=== PATIENT | female | born 1965 | race Two or more races ===

== ENCOUNTER 2023-03-15 17:30 | Inpatient (IN) | payer MEDICAID, OTHER ==
[~2023-03-15] VITALS: Ht 167.6 cm; Wt 72.7 kg
[2023-03-15] MEDS ORDERED: ACETAMINOPHEN 500 MG TAB PO ONE (18:15)
[2023-03-15 18:32] LABS: Basophils # (auto) 0 10 ^3/uL (0-0.2); Basophils % (auto) 0.1 % (0.0-2.0); Eosinophils # (auto) 0.1 10 ^3/uL (0-0.8); Eosinophils % (auto) 1.7 % (0.0-7.0); Hemoglobin 13.1 g/dL (12.2-16.2); Lymphocytes # (auto) 0.5 10 ^3/uL (0.4-5.4); Lymphocytes % (auto) 7.4 % (10.0-50.0); Mean Corpuscular Hemoglobin 30.7 pg (28.0-32.0); Mean Corpuscular Hgb Conc. 32.7 g/dL (32.0-36.0); Mean Corpuscular Volume 93.9 fL (80.0-100.0); Monocytes # (auto) 0.2 10 ^3/uL (0-1.3); Monocytes % (auto) 2.8 % (0.0-12.0); Neutrophils # (auto) 5.5 10 ^3/uL (1.6-8.6); Red Blood Cells 4.26 10^6/uL (4.0-5.20); Red Cell Distribution Width 13.6 % (11.8-14.3); White Blood Cell 6.3 10^3/uL (4.4-10.8)
[2023-03-15 18:49] LABS: INR 0.92 (0.9-1.15); Partial Thromboplastin Time 25.9 sec (24.6-33.4)
[2023-03-15 19:51] LABS: Albumin 3.3 g/dL (3.4-5.0); Calcium 8.4 mg/dL (8.5-10.1); Magnesium 1.9 mg/dL (1.6-2.6); Potassium 3.9 mmol/L (3.5-5.1)
[2023-03-15 19:55] LABS: BUN/Creatinine Ratio 20.3 (10.0-20.0); Bilirubin, Total 0.6 mg/dL (0.2-1.0); Total Protein 6.4 g/dL (6.4-8.2)
[2023-03-15] MEDS ORDERED: PIPERACILLIN-TAZOB 3.375GM 100 ML IV ONE (20:00)
[2023-03-15] MEDS ORDERED: LACTATED RINGER'S 2,200 ML IV ONE (20:00)
[2023-03-15] MEDS ORDERED: VANCOMYCIN 1GM/250ML 250 ML IV ONE (20:00)
[2023-03-16 01:54] LABS: Urine Bacteria FEW /hpf (None Seen); Urine Blood Negative /uL (Negative); Urine Specific Gravity 1.003 (1.001-1.035); Urine WBC <1 /hpf (0 - 5)
[2023-03-16] MEDS ORDERED: VANCOMYCIN PER PHARMACY 0 MG IV SCH (03:45)
[2023-03-16] MEDS ORDERED: DEXTROSE (50%) 50ML SYRG IV PRN (03:45)
[2023-03-16] MEDS ORDERED: ONDANSETRON HCL 4 MG/2 ML VIAL IV PRN (03:45)
[2023-03-16] MEDS ORDERED: DOCUSATE SOD 100 MG CAP PO PRN (03:45)
[2023-03-16] MEDS ORDERED: HYDROcodone-ACET 5/325MG TAB PO PRN (03:45)
[2023-03-16] MEDS: SOD CHL 0.45% 1,000 ML IV SCH ×2 (04:36→17:28)
[2023-03-16] MEDS ORDERED: MORPHINE SULFATE INJ 2 MG/ml SYRG IV PRN (05:30)
[2023-03-16] MEDS ORDERED: NITROGLYCERIN 0.4 MG SL TAB SL PRN (05:30)
[2023-03-16 05:37] LABS: Potassium 3.4 mmol/L (3.5-5.1)
[2023-03-16 05:44] LABS: Albumin 3.1 g/dL (3.4-5.0); Bilirubin, Total 0.7 mg/dL (0.2-1.0); Calcium 8.2 mg/dL (8.5-10.1); Total Protein 6.5 g/dL (6.4-8.2)
[2023-03-16 05:52] LABS: Basophils # (auto) 0 10 ^3/uL (0-0.2); Basophils % (auto) 0.3 % (0.0-2.0); Eosinophils # (auto) 0.1 10 ^3/uL (0-0.8); Eosinophils % (auto) 2.4 % (0.0-7.0); Hematocrit 37.5 % (36.0-46.0); Hemoglobin 12.5 g/dL (12.2-16.2); Lymphocytes # (auto) 1.6 10 ^3/uL (0.4-5.4); Lymphocytes % (auto) 27.2 % (10.0-50.0); Mean Corpuscular Hemoglobin 30.9 pg (28.0-32.0); Mean Corpuscular Hgb Conc. 33.2 g/dL (32.0-36.0); Monocytes # (auto) 0.5 10 ^3/uL (0-1.3); Monocytes % (auto) 9.2 % (0.0-12.0); Neutrophils # (auto) 3.5 10 ^3/uL (1.6-8.6); Neutrophils % (auto) 60.9 % (37.0-80.0); Red Blood Cells 4.03 10^6/uL (4.0-5.20); Red Cell Distribution Width 13.4 % (11.8-14.3); White Blood Cell 5.8 10^3/uL (4.4-10.8)
[2023-03-16] MEDS: ACCU-CHEK COMFORT CURVE STRIP VI SCH ×4 (06:55→22:25)
[2023-03-16] MEDS: InsuLIN REG 1unit/0.01ml Soln (100units/ml) SC SCH ×3 (07:01→17:29)
[2023-03-16] MEDS ORDERED: cefTRIAXone 1GM/50ML D5W 50 ML IV SCH (09:00)
[2023-03-16] MEDS: ACETAMINOPHEN 325 MG TAB PO PRN ×2 (09:01→22:32)
[2023-03-16] MEDS ORDERED: ASPirin 81 mg TAB PO SCH (10:00)
[2023-03-16] MEDS: VANCOMYCIN 1GM/250ML 250 ML IV SCH ×2 (11:11→23:32)
[2023-03-16] MEDS ORDERED: InsuLIN REG 1unit/0.01ml Soln (100units/ml) SC SCH (22:00)
[2023-03-16] MEDS ORDERED: ATORVASTATIN 20 MG TAB PO SCH (22:00)
[2023-03-17 06:37] LABS: Basophils # (auto) 0 10 ^3/uL (0-0.2); Basophils % (auto) 0.5 % (0.0-2.0); Eosinophils # (auto) 0.2 10 ^3/uL (0-0.8); Eosinophils % (auto) 2.2 % (0.0-7.0); Hematocrit 36.4 % (36.0-46.0); Hemoglobin 12.7 g/dL (12.2-16.2); Lymphocytes # (auto) 1.8 10 ^3/uL (0.4-5.4); Lymphocytes % (auto) 25.7 % (10.0-50.0); Mean Corpuscular Hemoglobin 32.1 pg (28.0-32.0); Mean Corpuscular Volume 91.8 fL (80.0-100.0); Monocytes # (auto) 0.7 10 ^3/uL (0-1.3); Monocytes % (auto) 9.6 % (0.0-12.0); Neutrophils # (auto) 4.3 10 ^3/uL (1.6-8.6); Nucleated Red Blood Cells % 0.1 %; Red Blood Cells 3.96 10^6/uL (4.0-5.20); Red Cell Distribution Width 13.7 % (11.8-14.3); White Blood Cell 6.9 10^3/uL (4.4-10.8)
[2023-03-17 06:40] VITALS: BP 142/61
[2023-03-17 06:53] LABS: Albumin 3.2 g/dL (3.4-5.0); Calcium 8.6 mg/dL (8.5-10.1); Potassium 3.2 mmol/L (3.5-5.1)
[2023-03-17 07:01] LABS: BUN/Creatinine Ratio 19.6 (10.0-20.0); Bilirubin, Total 0.7 mg/dL (0.2-1.0); Total Protein 6.9 g/dL (6.4-8.2)
== END 2023-03-17 06:43 | disposition left against medical advice (07) | DRG 422 ==
LOC: ER 17:30 → EDBD 17:30 → ER 03-16 02:21 → TELE 03-16 05:30
PROVIDERS: ADMIT Nurse Practitioner Family; ATTEND Internal Medicine
DX: E86.0 Dehydration (principal); E11.9 Type 2 diabetes mellitus without complications; N39.0 Urinary tract infection, site not specified; Z53.29 Procedure and treatment not carried out because of patient's decision for other reasons; R26.2 Difficulty in walking, not elsewhere classified; Z20.822 Contact with and (suspected) exposure to COVID-19; Z85.41 Personal history of malignant neoplasm of cervix uteri; Z86.73 Personal history of transient ischemic attack (TIA), and cerebral infarction without residual deficits; Z90.710 Acquired absence of both cervix and uterus
CPT/HCPCS: 36415; 70450; 71045; 74176; 80053; 81001; 82962; 83036; 83605; 83735; 83880; 84484; 85025; 85610; 85730; 87040; 87426; 87804; 93005; 96365; 96367; G0378; J0696; J1815; J2543

== ENCOUNTER 2023-07-02 15:48 | Inpatient (IN) | payer MEDICAID ==
[~2023-07-02] VITALS: Ht 160 cm; Wt 89.6 kg
[2023-07-02] MEDS ORDERED: CLOPIDOGREL BISULFATE 75 MG TAB PO ONE (16:45)
[2023-07-02 16:59] LABS: Basophils # (auto) 0 10 ^3/uL (0-0.2); Basophils % (auto) 0.7 % (0.0-2.0); Eosinophils # (auto) 0.1 10 ^3/uL (0-0.8); Eosinophils % (auto) 1.4 % (0.0-7.0); Hematocrit 38.6 % (36.0-46.0); Hemoglobin 12.8 g/dL (12.2-16.2); Lymphocytes # (auto) 2.1 10 ^3/uL (0.4-5.4); Lymphocytes % (auto) 32.3 % (10.0-50.0); Mean Corpuscular Hgb Conc. 33.1 g/dL (32.0-36.0); Mean Corpuscular Volume 93.6 fL (80.0-100.0); Monocytes # (auto) 0.5 10 ^3/uL (0-1.3); Monocytes % (auto) 7.1 % (0.0-12.0); Neutrophils # (auto) 3.9 10 ^3/uL (1.6-8.6); Neutrophils % (auto) 58.5 % (37.0-80.0); Nucleated Red Blood Cells % 0.1 %; Red Blood Cells 4.13 10^6/uL (4.0-5.20); Red Cell Distribution Width 13.6 % (11.8-14.3); White Blood Cell 6.6 10^3/uL (4.4-10.8)
[2023-07-02] MEDS ORDERED: ONDANSETRON HCL 4 MG/2 ML VIAL IV PRN (17:15)
[2023-07-02] MEDS ORDERED: DEXTROSE (50%) 50ML SYRG IV PRN (17:15)
[2023-07-02] MEDS ORDERED: HYDROcodone-ACET 5/325MG TAB PO PRN (17:15)
[2023-07-02] MEDS ORDERED: hydrALAZINE HCL 20 MG/ML VL IV PRN (17:15)
[2023-07-02] MEDS ORDERED: IBUPROFEN 600 MG TAB PO PRN (17:15)
[2023-07-02] MEDS ORDERED: DOCUSATE SOD 100 MG CAP PO PRN (17:15)
[2023-07-02 17:19] LABS: Alanine Aminotransferase 19 U/L (7-40); Albumin 4.2 g/dL (3.2-4.8); Alkaline Phosphatase 96 U/L (46-116); Anion Gap 7.8 (5-15); Aspartate Aminotransferase 12 U/L (13-40); BUN/Creatinine Ratio 17.1 (10.0-20.0); Bilirubin, Total 0.5 mg/dL (0.2-1.0); Blood Urea Nitrogen 13 mg/dL (9-23); Calcium 9.5 mg/dL (8.5-10.1); Carbon Dioxide 27.2 mmol/L (20-30); Chloride 110 mmol/L (98-107); Glucose 196 mg/dL (74-106); Potassium 3.7 mmol/L (3.5-5.1); Sodium 145 mmol/L (136-145); Total Protein 6.7 g/dL (5.7-8.2)
[2023-07-02] MEDS ORDERED: NITROGLYCERIN 0.4 MG SL TAB SL PRN (17:45)
[2023-07-02] MEDS ORDERED: MORPHINE SULFATE INJ 2 MG/ml SYRG IV PRN (17:45)
[2023-07-02] MEDS: InsuLIN REG 1unit/0.01ml Soln (100units/ml) SC SCH (22:00)
[2023-07-02] MEDS: ACCU-CHEK COMFORT CURVE STRIP VI SCH (22:00)
[2023-07-03] VITALS (8 sets, daily range): BP systolic 128–189; BP diastolic 59–102; PULSE 75–95; RESP 14–22; TEMP 97.6–97.9; O2SAT 95–100
[2023-07-03] MEDS: FAMOTIDINE (10MG/ML) 2ML VL IV SCH ×2 (03:42→09:43)
[2023-07-03 05:04] LABS: Basophils # (auto) 0.1 10 ^3/uL (0-0.2); Eosinophils # (auto) 0.2 10 ^3/uL (0-0.8); Eosinophils % (auto) 2.3 % (0.0-7.0); Hematocrit 38.9 % (36.0-46.0); Hemoglobin 13.3 g/dL (12.2-16.2); Lymphocytes # (auto) 2.3 10 ^3/uL (0.4-5.4); Mean Corpuscular Hemoglobin 32.1 pg (28.0-32.0); Mean Corpuscular Hgb Conc. 34.2 g/dL (32.0-36.0); Monocytes # (auto) 0.5 10 ^3/uL (0-1.3); Monocytes % (auto) 6.6 % (0.0-12.0); Neutrophils % (auto) 57.1 % (37.0-80.0); Nucleated Red Blood Cells % 0.1 %; Red Blood Cells 4.14 10^6/uL (4.0-5.20); Red Cell Distribution Width 13.6 % (11.8-14.3)
[2023-07-03 05:10] LABS: Alanine Aminotransferase 18 U/L (7-40); Albumin 4.5 g/dL (3.2-4.8); Alkaline Phosphatase 99 U/L (46-116); Anion Gap 3.9 (5-15); Aspartate Aminotransferase 12 U/L (13-40); BUN/Creatinine Ratio 18.5 (10.0-20.0); Blood Urea Nitrogen 12 mg/dL (9-23); Calcium 9.5 mg/dL (8.7-10.4); Carbon Dioxide 29.1 mmol/L (20-30); Chloride 109 mmol/L (98-107); Glucose 157 mg/dL (74-106); Potassium 3.4 mmol/L (3.5-5.1); Sodium 142 mmol/L (136-145)
[2023-07-03 05:11] LABS: Bilirubin, Total 0.7 mg/dL (0.2-1.0); Total Protein 7.4 g/dL (5.7-8.2)
[2023-07-03] MEDS: InsuLIN REG 1unit/0.01ml Soln (100units/ml) SC SCH ×4 (07:00→21:12)
[2023-07-03] MEDS: ACCU-CHEK COMFORT CURVE STRIP VI SCH ×4 (07:50→22:25)
[2023-07-03] MEDS: ASPirin 81 mg TAB PO SCH (09:42)
[2023-07-03] MEDS ORDERED: amLODIPine BESYLATE 5 MG TAB PO SCH (10:00)
[2023-07-03] MEDS ORDERED: LORazepam 2MG/ML-1ML VIAL IV PRN (10:45)
[2023-07-03] MEDS ORDERED: SODIUM CHLORIDE 0.9% 1,000 ML IV SCH (10:45)
[2023-07-03] MEDS ORDERED: IOHEXOL 350 MG/ML 100ML IJ ONE (10:57)
[2023-07-03 11:06] LABS: Urine Bacteria FEW /hpf (None Seen); Urine Blood Negative /uL (Negative); Urine Clarity Clear (Clear); Urine Color Yellow (Yellow); Urine Mucus FEW (None Seen); Urine Protein, UAD Negative (Negative); Urine Urobilinogen Normal (Negative); Urine WBC 29 /hpf (0 - 5)
[2023-07-03] MEDS ORDERED: hydrALAZINE HCL 10 MG TAB PO ONE (12:45)
[2023-07-03] MEDS: hydrALAZINE HCL 10 MG TAB PO SCH ×2 (18:02→23:58)
[2023-07-03 18:58] LABS: Creatinine, Urine 120.98 mg/dL (30.0-125.0)
[2023-07-03] MEDS ORDERED: ATORVASTATIN 20 MG TAB PO SCH ×2 (22:00)
[2023-07-04 05:00] VITALS: BP 127/61; PULSE 80; RESP 22; TEMP 97.8; O2SAT 97
[2023-07-04] MEDS: InsuLIN REG 1unit/0.01ml Soln (100units/ml) SC SCH ×2 (06:10→12:46)
[2023-07-04] MEDS: ACCU-CHEK COMFORT CURVE STRIP VI SCH ×2 (06:10→11:11)
[2023-07-04] MEDS ORDERED: POTASSIUM CHL 10 Meq TABLET PO ONE (06:30)
[2023-07-04 06:51] LABS: Anion Gap 9.6 (5-15); Calcium 9.1 mg/dL (8.5-10.1); Carbon Dioxide 25.4 mmol/L (20-30); Chloride 108 mmol/L (98-107); Potassium 3.6 mmol/L (3.5-5.1); Sodium 143 mmol/L (136-145)
[2023-07-04 06:55] LABS: Basophils # (auto) 0.1 10 ^3/uL (0-0.2); Eosinophils # (auto) 0.2 10 ^3/uL (0-0.8); Eosinophils % (auto) 2.4 % (0.0-7.0); Hematocrit 40.6 % (36.0-46.0); Hemoglobin 13.3 g/dL (12.2-16.2); Lymphocytes # (auto) 2.4 10 ^3/uL (0.4-5.4); Lymphocytes % (auto) 32.6 % (10.0-50.0); Mean Corpuscular Hemoglobin 30.7 pg (28.0-32.0); Mean Corpuscular Hgb Conc. 32.6 g/dL (32.0-36.0); Mean Corpuscular Volume 94.1 fL (80.0-100.0); Monocytes # (auto) 0.5 10 ^3/uL (0-1.3); Monocytes % (auto) 6.7 % (0.0-12.0); Neutrophils # (auto) 4.1 10 ^3/uL (1.6-8.6); Neutrophils % (auto) 57.3 % (37.0-80.0); Red Blood Cells 4.32 10^6/uL (4.0-5.20); Red Cell Distribution Width 13.7 % (11.8-14.3); White Blood Cell 7.2 10^3/uL (4.4-10.8)
[2023-07-04] MEDS: hydrALAZINE HCL 10 MG TAB PO SCH ×2 (06:55→12:00)
[2023-07-04 06:56] LABS: Glucose 174 mg/dL (74-106)
[2023-07-04 06:57] LABS: Blood Urea Nitrogen 13 mg/dL (9-23); Triglycerides 213 mg/dL (< 150)
[2023-07-04 06:58] LABS: Cholesterol 189 mg/dL (< 200); LDL Cholesterol 122 mg/dL (< 100); Magnesium 1.7 mg/dL (1.6-2.6)
[2023-07-04 06:59] LABS: HDL Cholesterol 41 mg/dL (40-59)
[2023-07-04 08:00] VITALS: PULSE 79
[2023-07-04] MEDS: ASPirin 81 mg TAB PO SCH (08:13)
[2023-07-04 09:00] VITALS: BP 164/83; PULSE 89; RESP 16; TEMP 98.3; O2SAT 98
[2023-07-04] MEDS ORDERED: amLODIPine BESYLATE 5 MG TAB PO SCH (10:00)
[2023-07-04] MEDS ORDERED: INSUINJ37 SC (11:17)
[2023-07-04] MEDS ORDERED: [UNRECOGNIZED DRUG - CODE] PO (11:17)
[2023-07-04] MEDS ORDERED: ASPI81CH59 PO (11:17)
[2023-07-04 13:00] VITALS: BP 148/82; PULSE 91; RESP 14; TEMP 98.2; O2SAT 96
[2023-07-04 13:21] VITALS: BP 148/82
[2023-07-10 13:06] LABS: Renin Activity <0.167 ng/mL/hr (0.167-5.380)
[2023-07-10] MEDS ORDERED: CIPR-273 PO (15:22)
== END 2023-07-04 14:13 | disposition home or self-care (01) | DRG 425 ==
LOC: ER 15:48 → TELE 17:43 → TELE-WESTW 07-03 10:12
PROVIDERS: ADMIT Internal Medicine Geriatric Medicine; ATTEND Student in an Organized Health Care Education/Training Program
DX: E87.6 Hypokalemia (principal); G93.41 Metabolic encephalopathy; E11.9 Type 2 diabetes mellitus without complications; E66.01 Morbid (severe) obesity due to excess calories; N39.0 Urinary tract infection, site not specified; E26.9 Hyperaldosteronism, unspecified; F17.200 Nicotine dependence, unspecified, uncomplicated; I10 Essential (primary) hypertension; Z79.82 Long term (current) use of aspirin; Z79.899 Other long term (current) drug therapy; Z82.49 Family history of ischemic heart disease and other diseases of the circulatory system; Z83.3 Family history of diabetes mellitus; Z90.710 Acquired absence of both cervix and uterus; Z68.35 Body mass index [BMI] 35.0-35.9, adult; Z86.73 Personal history of transient ischemic attack (TIA), and cerebral infarction without residual deficits
CPT/HCPCS: 36415; 70450; 70496; 70551; 71045; 80048; 80053; 80061; 81001; 82088; 82533; 82570; 82962; 83036; 83735; 83880; 83930; 84133; 84244; 84300; 84443; 84484; 85025; 93005; 93306; 93976; 99291; G0378; J1815; J2405; J3490

== ENCOUNTER 2024-03-14 16:51 | Emergency (ER) | payer MEDICAID ==
[~2024-03-14] VITALS: Ht 152.4 cm; Wt 104.0 kg
[~2024-03-14 16:51] MED LIST: ASPI81CH59 PO; CIPR-273 PO; INSUINJ37 SC; [UNRECOGNIZED DRUG - CODE] PO
[2024-03-14 17:50] VITALS: PULSE 88; RESP 15; TEMP 98; O2SAT 95
[2024-03-14 18:43] LABS: Basophils # (auto) 0.1 10 ^3/uL (0-0.2); Basophils % (auto) 0.7 % (0.0-2.0); Eosinophils # (auto) 0.1 10 ^3/uL (0-0.8); Eosinophils % (auto) 0.8 % (0.0-7.0); Hematocrit 36.7 % (36.0-46.0); Hemoglobin 12.1 g/dL (12.2-16.2); Lymphocytes # (auto) 2.6 10 ^3/uL (0.4-5.4); Lymphocytes % (auto) 28.4 % (10.0-50.0); Mean Corpuscular Volume 93.9 fL (80.0-100.0); Monocytes # (auto) 0.6 10 ^3/uL (0-1.3); Monocytes % (auto) 6.4 % (0.0-12.0); Neutrophils # (auto) 5.8 10 ^3/uL (1.6-8.6); Neutrophils % (auto) 63.7 % (37.0-80.0); Red Blood Cells 3.91 10^6/uL (4.0-5.20); Red Cell Distribution Width 13.8 % (11.8-14.3); White Blood Cell 9.1 10^3/uL (4.4-10.8)
[2024-03-14 18:53] LABS: Alanine Aminotransferase 15 U/L (7-40); Albumin 3.9 g/dL (3.2-4.8); Alkaline Phosphatase 91 U/L (46-116); Anion Gap 4 (5-15); Aspartate Aminotransferase 14 U/L (13-40); Bilirubin, Total 0.7 mg/dL (0.2-1.0); Blood Urea Nitrogen 16 mg/dL (9-23); Calcium 9.4 mg/dL (8.7-10.4); Carbon Dioxide 28 mmol/L (20-30); Chloride 107 mmol/L (98-107); Glucose 161 mg/dL (74-106); Lipase 39 U/L (12-53); Potassium 4.1 mmol/L (3.5-5.1); Sodium 139 mmol/L (136-145); Total Protein 6.7 g/dL (5.7-8.2)
[2024-03-14 18:56] VITALS: BP 136/74; PULSE 87; RESP 20
[2024-03-14] MEDS: MORPHINE SULFATE 4 MG/ML SYR/VIAL IV ONE (18:56)
[2024-03-14] MEDS: ONDANSETRON HCL 4 MG/2 ML VIAL IV ONE (18:56)
[2024-03-14] MEDS ORDERED: IOHEXOL 300 MG/ML 100ML BOTTLE IJ ONE (19:42)
[2024-03-14] MEDS ORDERED: IOHEXOL 350 MG/ML 100ML IJ ONE (20:55)
== END 2024-03-14 20:10 | disposition left against medical advice (07) ==
LOC: ER 16:51
DX: R10.9 Unspecified abdominal pain (principal); M54.50 Low back pain, unspecified; E11.9 Type 2 diabetes mellitus without complications; I10 Essential (primary) hypertension; Z90.710 Acquired absence of both cervix and uterus
CPT/HCPCS: 36415; 80053; 83605; 83690; 85025; 93005; 96374; 96375; 99284; J2270; J2405

== ENCOUNTER 2024-03-29 18:58 | Emergency (ER) | payer MEDICAID ==
[~2024-03-29] VITALS: Ht 165.1 cm; Wt 109.0 kg
[2024-03-29 19:10] VITALS: BP 145/63; PULSE 91; RESP 16; TEMP 98.4; O2SAT 97
[2024-03-29 20:57] LABS: Urine Bacteria None Seen /hpf (None Seen)
[2024-03-29 21:15] LABS: Urine Blood TRACE /uL (Negative); Urine Clarity Turbid (Clear); Urine Color Dark-Red (Yellow); Urine Mucus FEW (None Seen); Urine Protein, UAD 2+ (Negative); Urine Specific Gravity 1.031 (1.001-1.035); Urine Urobilinogen Normal (Negative); Urine WBC 496 /hpf (0 - 5); Urine WBC Clumps PRESENT /hpf (None Seen)
[2024-03-29 21:29] LABS: Amphetamine Screen, Urine Neg (NEGATIVE); Barbiturate Scree,Urine Neg (NEGATIVE); Benzodiazephine Screen, Urine Neg (NEGATIVE); Cocaine Screen, Urine Neg (NEGATIVE); Opiate Scree,Urine Neg (NEGATIVE)
[2024-03-29 21:30] LABS: Cannabinoid Screen, Urine Neg (NEGATIVE); Phencyclidine Screen, Urine Neg (NEGATIVE)
[2024-03-29] MEDS ORDERED: SULF800T23 PO (22:17)
[2024-03-29] MEDS ORDERED: ACET500T58 PO (22:17)
[2024-03-29] MEDS: cefTRIAXone SOD 1,000 MG VL IM ONE (23:17)
[2024-03-29] MEDS: ONDANSETRON ODT 4 MG TAB PO ONE (23:17)
[2024-03-29] MEDS: HYDROcodone-ACET 5/325MG TAB PO ONE (23:18)
== END 2024-03-29 23:22 | disposition home or self-care (01) ==
LOC: ER 18:58
DX: N39.0 Urinary tract infection, site not specified (principal); E11.9 Type 2 diabetes mellitus without complications; I10 Essential (primary) hypertension; Z90.710 Acquired absence of both cervix and uterus; Z85.9 Personal history of malignant neoplasm, unspecified; Z86.73 Personal history of transient ischemic attack (TIA), and cerebral infarction without residual deficits
CPT/HCPCS: 80307; 81001; 87086; 96372; 99283; J0696; Q0162

== ENCOUNTER 2024-04-23 18:30 | Emergency (ER) | payer MEDICAID ==
[~2024-04-23] VITALS: Ht 152.4 cm; Wt 90.9 kg
[~2024-04-23 18:30] MED LIST changes: +ACET500T58 PO; +SULF800T23 PO
[2024-04-23 23:22] VITALS: BP 126/76; PULSE 76; RESP 18; TEMP 98
[2024-04-23] MEDS: KETOROLAC TROMETH 60MG/2ML VIAL IM ONE (23:30)
[2024-04-23] MEDS: HYDROcodone-ACET 5/325MG TAB PO ONE (23:30)
[2024-04-23] MEDS ORDERED: BACL10TA PO (23:38)
[2024-04-23] MEDS ORDERED: HYDR-4902 PO (23:38)
[2024-04-24 07:09] VITALS: O2SAT 98
== END 2024-04-23 23:22 | disposition home or self-care (01) ==
LOC: ER 18:30
DX: G89.29 Other chronic pain (principal); M54.40 Lumbago with sciatica, unspecified side; I10 Essential (primary) hypertension; E11.9 Type 2 diabetes mellitus without complications; Z90.710 Acquired absence of both cervix and uterus; Z86.73 Personal history of transient ischemic attack (TIA), and cerebral infarction without residual deficits

== ENCOUNTER 2024-09-01 12:52 | Emergency (ER) | payer MEDICAID ==
[~2024-09-01] VITALS: Ht 165.1 cm; Wt 94.5 kg
[~2024-09-01 12:52] MED LIST changes: +BACL10TA PO; +HYDR-4902 PO
--- NOTE | 2024-09-01 13:18 | ED.PDOC ---
Musculoskeletal HPI Comments This is a 59-year-old female who came into the ED with chief complain of lower extremity pain. She has a past medical history relevant for type 2 diabetes, hypertension, hyperlipidemia, recurrent UTIs. Patient stated that she had a fall two days ago in which she tripped with the carpet, she landed on her left hip, denies hitting her head or any other part of her body, did not lose consciousness, she said that after that she has been experiencing sharp pain on the left side of her hip and difficulty walking with weakness, she denies any chills, fevers, chest pain, shortness of breath, abdominal pain, nausea, dizziness, lightheadedness. Patient denies any other recent falls. Chief Complaint: Lower Extremity Time Seen by MD: 12:53 Primary Care Provider: OSKAR Reviewed Notes: Nurses Notes Allergies: Coded Allergies: NO KNOWN ALLERGIES (Unverified , 03/16/23) Home Meds Active Scripts Baclofen (Baclofen) 10 Mg Tab, 1 TAB PO Q8HPRN PRN, #15 TAB As needed for muscle spasm do not take with [facility] Prov:YONATHAN GONZALEZ Q STAFF ANESTHESIOLOGIST 04/23/24 Hydrocodone-Acetaminophen (Hydrocodone Bitartrate/AC 5-325 mg) 1 Tab Tab, 1 TAB PO Q6HR, #10 TAB as needed for pain do not take with baclofen Prov:YONATHAN GONZALEZ Q STAFF ANESTHESIOLOGIST 04/23/24 Acetaminophen (Acetaminophen) 500 Mg Tab, 500 MG PO Q4HPRN, #30 TAB 0 Refills Prov:MATT PARMAR 03/29/24 Sulfamethoxazole W/Trimethopri (Trimethoprim/Sulfamethoxa) 1 Tab Tab, 1 TAB PO BID for 7 Days, #14 TAB 0 Refills Prov:MATT PARMAR 03/29/24 Ciprofloxacin Hcl (Cipro) 250 Mg Tab, 250 MG PO BID, #14 TAB Prov:JULIETH HERNANDEZ MD 07/10/23 Reported Medications Insulin Glargine (Lantus Solostar) 100 Unit/Ml Inj, 15 UNIT SC DAILY 07/04/23 Mrlijagjcg-Pibdafjem-Fegvuwrxp (Amlodipine/Valsartan/Hctz 5-160-12.5 mg) 1 Tab Tab, 5-160 PO DAILY 07/04/23 Aspirin (Aspirin Low Dose) 81 Mg Chw, 1 TAB PO DAILY 07/04/23 Information Source: Patient Mode of Arrival: Ambulatory Location: Left Extremity Location: Hip Timing: Days Past Medical History PAST MEDICAL HISTORY: Cancer, CVA, DM, HTN, UTI'S Surgical History: Hysterectomy SHAKER TENDER History: No Pertinent SHAKER TENDER History Family History Family History: Unknown Social History Smoker: Non-Smoker Alcohol: Denies ETOH Use Drugs: Denies Drug Use Lives In: Home Constitutional: denies: chills, diaphoresis, fatigue, fever, malaise, sweats, weakness, others EENTM: denies: blurred vision, double vision, ear bleeding, ear discharge, ear drainage, ear pain, ear ringing, eye pain, eye redness, hearing loss, mouth pain, mouth swelling, nasal discharge, nose bleeding, nose congestion, nose pain, photophobia, tearing, throat pain, throat swelling, voice changes, others Respiratory: denies: cough, hemoptysis, orthopnea, SOB at rest, shortness of breath, SOB with excertion, stridor, wheezing, others Cardiovascular: denies: chest pain, dizzy spells, diaphoresis, Dyspnea on exertion, edema, irregular heart beat, left arm pain, lightheadedness, palpitations, PND, syncope, others Gastrointestinal: denies: abdomen distended, abdominal pain, blood streaked bowels, constipated, diarrhea, dysphagia, difficulty swallowing, hematemesis, melena, nausea, poor appetite, poor fluid intake, rectal bleeding, rectal pain, vomiting, others Genitourinary: denies: abnormal vagina bleeding, burning, dyspareunia, dysuria, flank pain, frequency, hematuria, incontinence, pain, , vagina discharge, urgency, others Neurological: denies: dizziness, fainting, headache, left sided numbness, left sided weakness, numbness, paresthesia, pre-existing deficit, right sided numbness, right sided weakness, seizure, speech problems, tingling, tremors, weakness, others Musculoskeletal: reports: back pain, joint pain, muscle pain; denies: gout, joint swelling, muscle stiffness, neck pain, others Integumetry: denies: bruises, change in color, change in hair/nails, dryness, laceration, lesions, lumps, rash, wounds, others Allergic/Immunocompromised: denies: Difficulty Healing, Frequent Infections, Hives, Itching, others Hematologic/Lymphatic: denies: anemia, blood clots, easy bleeding, easy bruising, swollen glands, others Endocrine: denies: excessive hunger, excessive sweating, excessive thirst, excessive urination, flushing, intolerance to cold, intolerance to heat, unexplained weight gain, unexplained weight loss, others Psychiatric: denies: anxiety, bipolar disorder, depression, hopeless, panic disorder, schizophrenia, sleepless, suicidal, others Physical Exam General Appearance: No Apparent Distress, Normal HEENT: Normal ENT Inspection, Pharynx Normal, TMs Normal Neck: Full Range of Motion, Non-Tender, Normal, Normal Inspection Respiratory: Chest Non-Tender, Lungs Clear, No Accessory Muscle Use, No Respiratory Distress, Normal Breath Sounds Cardiovascular: No Edema, No JVD, No Murmur, No Gallop, Normal Peripheral Pulses, Regular Rate/Rhythm Breast Exam: Deferred Gastrointestinal: No Organomegaly, Non Tender, No Pulsatile Mass, Normal Bowel Sounds, Soft Genitalia: Deferred Pelvic: Deferred Rectal: Deferred Extremities: Decreased range of motion, No calf tenderness, Normal capillary refill, Normal inspection, Non-tender, No pedal edema, Tender Neurologic: Alert, wave guide assembler II-XII nml as Tested, No Motor Deficits, Normal Affect, Normal Mood, No Sensory Deficits Cerebellar Function: Normal Reflexes: NOT DONE Skin: Dry, Normal Color, Warm Lymphatic: No Adenopathy Was a procedure done? Was a procedure done?: No Differential Diagnosis EXT Differential Diagnosis: Sprain, Contusion, Strain, Arthritis X-Ray, Labs, Meds, VS Vital Signs Date Time Temp Pulse Resp B/P (MAP) Pulse Ox O2 Delivery O2 Flow Rate FiO2 09/01/24 13:32 92 20 95 Room Air* 0 21 09/01/24 13:32 98.8 82 20 147/61 (89) 95 98.8 09/01/24 13:00 97.4 96 20 149/69 (95) 96 97.4 09/01/24 13:00 97.4 96 20 149/69 (95) 96 Lab Test 09/01/24 13:43 Range/Units Urine Color Light-yellow Yellow Urine Clarity Turbid H Clear Urine pH 5.5 5.0-9.0 Urine Specific [place] 1.026 1.001-1.035 Urine Protein 1+ H Negative Urine Ketones Negative Negative Urine Blood Negative Negative /uL Urine Nitrite 2+ H Negative Urine Bilirubin Negative Negative Urine Urobilinogen Normal Negative mg/dL Urine Leukocyte Esterase 3+ Negative /uL Urine RBC 26 0 - 4 /hpf Urine WBC 968 0 - 5 /hpf Urine WBC Clumps Present None Seen /hpf Urine Squamous Epithelial Cells Few <5 /hpf Urine Bacteria Few H None Seen /hpf Urine Mucus Few None Seen Urine Glucose 1+ H Normal mg/dL Current Medications Medications (Trade) Dose Ordered Sig/Richardson Route Start Time Stop Time Status Last Admin Ketorolac Tromethamine (Toradol Injection) 60 mg ONCE ONCE IM 09/01/24 13:15 09/01/24 13:16 DC 09/01/24 13:31 On my initial examination, patient is in no apparent distress, she is complaining of left hip pain, she is able to walk with with pain. We will order left hip x-ray, Toradol IM and a UA. We will continue to reassess. Hip x-ray was unremarkable, patient states having improvement on pain, she also complain of dysuria urinary urgency and frequency, vital signs are stable, we will prescribed one Rocephin 1 g IM, we will discharge patient home and continue cefpodoxime 200 mg p.o. b.i.d. for next seven days, we will also prescribe ibuprofen 400 mg p.o. p.r.n., patient will recommended to follow with her PCP within one week and she shall continue taking her home medications. She verbalized understanding and agreed with the plan. Images Reviewed?: Images reviewed and evaluated by me Time of 1ST Reevaluation: 13:13 Reevaluation 1ST: Unchanged Time of 2ND Reevaluation: 14:31 Reevaluation 2ND: Improved Patient Education/Counseling: Diagnosis, Treatment Family Education/Counseling: No Family Present Departure 1 Departure Time of Disposition: 14:32 Impression: Primary Impression: UTI (urinary tract infection) Additional Impressions: Left hip pain Osteoarthrosis Chronic low back pain Sciatica Disposition: 01 HOME / SELF CARE / HOMELESS Condition: Guarded e-Prescriptions Ibuprofen (Ibuprofen) 400 Mg Tab 1 TAB PO Q6HPRN, #20 TAB Prov: MADELIN HAMMOND RESIDENT 09/01/24 Cefpodoxime Proxetil (Cefpodoxime Proxetil) 200 Mg Tab 1 TAB PO BID for 7 Days, #14 TAB Prov: MADELIN HAMMOND RESIDENT 09/01/24 Critical Care Note Critical Care Time?: No Stability Stability form required: No Heart Score Heart Score: Heart Score Response (Comments) Value History N/A 0 EKG N/A 0 Age N/A 0 Risk Factors N/A 0 Troponin N/A 0 Total 0 MADELIN HAMMOND RESIDENT Sep 01, 2024 13:18
[2024-09-01] MEDS: KETOROLAC TROMETH 60MG/2ML VIAL IM ONE (13:31)
[2024-09-01 13:32] VITALS: PULSE 92; RESP 20; O2SAT 95
--- NOTE | 2024-09-01 13:43 | DVH ---
CLINICAL INDICATION: left hip pain TECHNIQUE: 1 radiographic views of the pelvis and 2 views of the left hip were obtained. Comparison: None FINDINGS/IMPRESSION: There is no evidence of acute fracture or dislocation. The visualized joint space is well maintained. The alignment is anatomical. There is no radiopaque foreign body.
[2024-09-01 14:06] LABS: Urine Bacteria FEW /hpf (None Seen); Urine Blood Negative /uL (Negative); Urine Clarity Turbid (Clear); Urine Color Light-Yellow (Yellow); Urine Mucus FEW (None Seen); Urine Protein, UAD 1+ (Negative); Urine Specific Gravity 1.026 (1.001-1.035); Urine Urobilinogen Normal (Negative); Urine WBC 968 /hpf (0 - 5); Urine WBC Clumps PRESENT /hpf (None Seen); Urine pH 5.5 (5.0-9.0)
[2024-09-01] MEDS ORDERED: CEFP200T15 PO (14:32)
[2024-09-01] MEDS ORDERED: IBUP-1453 PO (14:32)
[2024-09-01] MEDS: cefTRIAXone SOD 1,000 MG VL IM ONE (15:16)
[2024-09-01 15:22] VITALS: BP 142/59; PULSE 97; RESP 20; TEMP 98.8; O2SAT 98
== END 2024-09-01 15:36 | disposition home or self-care (01) ==
LOC: ER 12:52
DX: N39.0 Urinary tract infection, site not specified (principal); M25.552 Pain in left hip; R26.2 Difficulty in walking, not elsewhere classified; M19.90 Unspecified osteoarthritis, unspecified site; M54.41 Lumbago with sciatica, right side; G89.29 Other chronic pain; E11.9 Type 2 diabetes mellitus without complications; E78.5 Hyperlipidemia, unspecified; I10 Essential (primary) hypertension; Z79.4 Long term (current) use of insulin; Z79.82 Long term (current) use of aspirin; Z79.899 Other long term (current) drug therapy; Z86.73 Personal history of transient ischemic attack (TIA), and cerebral infarction without residual deficits; Z90.710 Acquired absence of both cervix and uterus; W01.0XXA Fall on same level from slipping, tripping and stumbling without subsequent striking against object, initial encounter; Y93.89 Activity, other specified; Y92.89 Other specified places as the place of occurrence of the external cause; Y99.8 Other external cause status
CPT/HCPCS: 73502; 81001; 96372; 99284; J0696; J1885

== ENCOUNTER 2025-03-06 11:17 | Inpatient (IN) | payer MEDICAID ==
[~2025-03-06] VITALS: Ht 165.1 cm; Wt 95.5 kg
[~2025-03-06 11:17] MED LIST changes: +CEFP200T15 PO; +IBUP-1453 PO
[2025-03-06 11:51] VITALS: PULSE 96; RESP 16; O2SAT 91
[2025-03-06 11:56] LABS: Basophils # (auto) 0.1 10 ^3/uL (0-0.2); Eosinophils # (auto) 0.1 10 ^3/uL (0-0.8); Eosinophils % (auto) 1.5 % (0.0-7.0); Hematocrit 40.8 % (36.0-46.0); Hemoglobin 13.8 g/dL (12.2-16.2); Lymphocytes # (auto) 2.4 10 ^3/uL (0.4-5.4); Lymphocytes % (auto) 30.1 % (10.0-50.0); Mean Corpuscular Hemoglobin 31.2 pg (28.0-32.0); Mean Corpuscular Hgb Conc. 33.8 g/dL (32.0-36.0); Mean Corpuscular Volume 92.3 fL (80.0-100.0); Monocytes # (auto) 0.5 10 ^3/uL (0-1.3); Monocytes % (auto) 6.2 % (0.0-12.0); Neutrophils # (auto) 4.9 10 ^3/uL (1.6-8.6); Neutrophils % (auto) 61.2 % (37.0-80.0); Platelet Count (auto) 285 10^3/uL (140-450); Red Blood Cells 4.42 10^6/uL (4.0-5.20); Red Cell Distribution Width 13.6 % (11.8-14.3)
[2025-03-06] MEDS: ACETAMINOPHEN 500 MG TAB or CAP PO ONE (12:04)
[2025-03-06] MEDS: ONDANSETRON HCL 4 MG/2 ML VIAL IV ONE (12:04)
[2025-03-06] MEDS: MECLIZINE HCL 25 MG TAB PO ONE (12:04)
[2025-03-06 12:12] LABS: Alanine Aminotransferase 24 U/L (7-40); Albumin 4.6 g/dL (3.2-4.8); Alkaline Phosphatase 108 U/L (46-116); Anion Gap 9 (5-15); Aspartate Aminotransferase 16 U/L (13-40); BUN/Creatinine Ratio 18.1 (10.0-20.0); Bilirubin, Total 0.8 mg/dL (0.2-1.0); Blood Urea Nitrogen 13 mg/dL (9-23); Calcium 9.8 mg/dL (8.7-10.4); Carbon Dioxide 25 mmol/L (20-31); Chloride 106 mmol/L (98-107); Potassium 3.8 mmol/L (3.5-5.1); Sodium 140 mmol/L (136-145); Total Protein 7.7 g/dL (5.7-8.2)
[2025-03-06 12:15] LABS: Glucose 194 mg/dL (74-106)
--- NOTE | 2025-03-06 12:47 | DVH ---
EXAM: XY CHEST PORTABLE HISTORY: dizzy, gen weak COMPARISON: XY CHEST PORTABLE on DOS: 07/02/23, XY CHEST PORTABLE on DOS: 03/16/23 TECHNIQUE: Portable AP view of the chest was performed. FINDINGS: No no pneumothorax or consolidative infiltrates.. The heart is not enlarged. There are is an old Left mid clavicular fracture. There is abundant overlying adipose tissue. IMPRESSION: Obesity without evidence of acute intrathoracic process.
--- NOTE | 2025-03-06 12:52 | DVH ---
CLINICAL INFORMATION: Headache, generalized weakness. Nausea and vomiting. TECHNIQUE: Axial imaging was obtained through the brain without contrast. Coronal and sagittal reform atted images were obtained, reviewed, and stored. Images were reviewed in brain and bone windows. Al l CT scans at this medical facility are performed using dose modulation techniques as appropriate to a performed exam including the following: Automated exposure control was utilized; adjustment of the MA and/or KV according to patient size; and use of iterative reconstruction technique. CTDIvol = 60.0 2 mGy DLP = 987.72 mGy-cm COMPARISON: CT HEAD WITHOUT CONTRAST on DOS: 07/02/23, CT HEAD WITHOUT CONTRAST on DOS: 03/15/23 FINDINGS: There is no acute intracranial hemorrhage. No mass effect or midline shift. The ventricles and sulci are within normal limits in size for age. Basal cisterns are patent. The calvarium is unre markable. Paranasal sinuses and mastoid air cells are clear. IMPRESSION: No CT evidence of acute intracranial abnormality.
--- NOTE | 2025-03-06 13:34 | ED.PDOC ---
Altered Mental Status HPI Comments 59-year-old female brought in by EMS from [facility] for evaluation of altered mental status. Per EMS, patient was seated in [facility] when she was noted to be somewhat lethargic. Bystanders called 911. On arrival by EMS, patient was reportedly appearing somnolent and was not verbally answering questions. When IV access was started, the patient became more alert and was able to respond verbally. On arrival to ER, patient states she has had worsening of her chronic back pain since yesterday, and also has been feeling dizzy and nauseated, and has had an occipital headache. She had nausea and vomiting this morning, but subsequently felt better and felt well enough to attend [facility]. Currently she states she feels generally weak, dizzy and very sleepy, but denies any vision changes or focal weakness. Patient's son at bedside states the patient normally ambulates without assistance. Chief Complaint: General Weakness Time Seen by MD: 11:26 Primary Care Provider: OSKAR Allergies: Coded Allergies: NO KNOWN ALLERGIES (Unverified , 03/16/23) Home Meds Active Scripts Ibuprofen (Ibuprofen) 400 Mg Tab, 1 TAB PO Q6HPRN, #20 TAB Prov:MADELIN HAMMOND RESIDENT 09/01/24 Cefpodoxime Proxetil (Cefpodoxime Proxetil) 200 Mg Tab, 1 TAB PO BID for 7 Days, #14 TAB Prov:MADELIN HAMMOND RESIDENT 09/01/24 Baclofen (Baclofen) 10 Mg Tab, 1 TAB PO Q8HPRN PRN, #15 TAB As needed for muscle spasm do not take with [place] Prov:YONATHAN GONZALEZ Q HEAD MIXER 04/23/24 Hydrocodone-Acetaminophen (Hydrocodone Bitartrate/AC 5-325 mg) 1 Tab Tab, 1 TAB PO Q6HR, #10 TAB as needed for pain do not take with baclofen Prov:YONATHAN GONZALEZ Q HEAD MIXER 04/23/24 Acetaminophen (Acetaminophen) 500 Mg Tab, 500 MG PO Q4HPRN, #30 TAB 0 Refills Prov:MATT PARMAR 03/29/24 Sulfamethoxazole W/Trimethopri (Trimethoprim/Sulfamethoxa) 1 Tab Tab, 1 TAB PO BID for 7 Days, #14 TAB 0 Refills Prov:MATT PARMAR 03/29/24 Ciprofloxacin Hcl (Cipro) 250 Mg Tab, 250 MG PO BID, #14 TAB Prov:JULIETH HERNANDEZ MD 07/10/23 Reported Medications Insulin Glargine (Lantus Solostar) 100 Unit/Ml Inj, 15 UNIT SC DAILY 07/04/23 Avqxuloapk-Nwnqummqq-Eplybtwxu (Amlodipine/Valsartan/Hctz 5-160-12.5 mg) 1 Tab Tab, 5-160 PO DAILY 07/04/23 Aspirin (Aspirin Low Dose) 81 Mg Chw, 1 TAB PO DAILY 07/04/23 Mode of Arrival: EMS Past Medical History PAST MEDICAL HISTORY: Cancer, CVA, DM, HTN, UTI'S Past Medical History (Other): Uterine cancer in remission Surgical History: Hysterectomy MARINE RIGGER History: No Pertinent MARINE RIGGER History Family History Family History: Reviewed,noncontributory to illness Social History Smoker: Non-Smoker Alcohol: Denies ETOH Use Drugs: Denies Drug Use Lives In: Home All Other Systems: Reviewed and Negative (Comprehensive systems review obtained and negative except for what is stated in the HPI.) Physical Exam General Appearance: No Apparent Distress, Obese, Other (Somnolent, arousable) HEENT: PERRL/EOMI, Other (Moist mucous membranes. Face symmetric.) Neck: Full Range of Motion, Non-Tender, Normal Inspection, Supple Respiratory: Lungs Clear, No Accessory Muscle Use, No Respiratory Distress, Normal Breath Sounds Cardiovascular: No Edema, No JVD, Regular Rate/Rhythm Breast Exam: Deferred Gastrointestinal: Non Tender, Soft Genitalia: Deferred Pelvic: Deferred Rectal: Deferred Extremities: Normal inspection, Normal range of motion, Non-tender, No pedal edema Neurologic: Alert (Oriented x4), Normal Affect, Normal Mood, Other (Does not cooperate well with neuro exam. Moves all extremities, but states she does not want to move her lower extremities because she feels very dizzy and she is having back pain) Cerebellar Function: Unable to Test (Patient not cooperating with cerebellar testing) Reflexes: NOT DONE Skin: Dry, Normal Color, Warm Lymphatic: NOT DONE EKG EKG : Comments Sinus tach, rate 101, normal intervals, normal axis, normal QRS, nonspecific T change. Was a procedure done? Was a procedure done?: No Differential Diagnosis (ALOC) Differential Diagnosis: Dehydration, Hypoglycemia, DKA, Encephalopathy, Sepsis, CVA, Mass Lesion, SAH, Drug Overdose, ETOH Intoxication, Renal Failure, Other (Infection such as pneumonia or UTI, among others) X-Ray, Labs, Meds, VS Vital Signs Date Time Temp Pulse Resp B/P (MAP) Pulse Ox O2 Delivery O2 Flow Rate FiO2 03/06/25 16:00 86 13 95/58 (70) 95 03/06/25 16:00 83 03/06/25 14:24 95 16 129/61 03/06/25 13:59 98.0 99 14 130/58 (82) 93 98.0 03/06/25 13:55 110 15 169/78 03/06/25 13:45 101 03/06/25 11:51 98.1 96 16 144/70 (94) 91 98.1 03/06/25 11:51 96 16 91 Room Air* 0 21 03/06/25 11:25 98.1 100 20 137/75 (95) 96 98.1 03/06/25 11:24 101 Lab Test 03/06/25 14:42 03/06/25 14:12 03/06/25 12:51 03/06/25 11:45 Range/Units Lactic Acid Level 1.5 0.4-2.0 mmol/L Urine Color Colorless Yellow Urine Clarity Turbid H Clear Urine pH 5.5 5.0-9.0 Urine Specific [place] 1.010 1.001-1.035 Urine Protein Negative Negative Urine Ketones Negative Negative Urine Blood 1+ H Negative /uL Urine Nitrite 2+ H Negative Urine Bilirubin Negative Negative Urine Urobilinogen Normal Negative mg/dL Urine Leukocyte Esterase 3+ Negative /uL Urine RBC 19 0 - 4 /hpf Urine WBC Clumps Present None Seen /hpf Urine Microscopic WBC 444 H 0-5 /HPF Urine Squamous Epithelial Cells None seen <5 /hpf Urine Bacteria Mod H None Seen /hpf Urine Mucus Few None Seen Urine Glucose Normal Normal mg/dL Troponin I High Sensitivity 5 4 </=34 ng/L White Blood Count 8.0 4.4-10.8 10^3/uL Red Blood Count 4.42 4.0-5.20 10^6/uL Hemoglobin 13.8 12.2-16.2 g/dL Hematocrit 40.8 36.0-46.0 % Mean Corpuscular Volume 92.3 80.0-100.0 fL Mean Corpuscular Hemoglobin 31.2 28.0-32.0 pg Mean Corpuscular Hemoglobin Concent 33.8 32.0-36.0 g/dL Red Cell Distribution Width 13.6 11.8-14.3 % Platelet Count 285 140-450 10^3/uL Mean Platelet Volume 7.8 6.9-10.8 fL Neutrophils (%) (Auto) 61.2 37.0-80.0 % Lymphocytes (%) (Auto) 30.1 10.0-50.0 % Monocytes (%) (Auto) 6.2 0.0-12.0 % Eosinophils (%) (Auto) 1.5 0.0-7.0 % Basophils (%) (Auto) 1.0 0.0-2.0 % Neutrophils # (Auto) 4.9 1.6-8.6 10 ^3/uL Lymphocytes # (Auto) 2.4 0.4-5.4 10 ^3/uL Monocytes # (Auto) 0.5 0-1.3 10 ^3/uL Eosinophils # (Auto) 0.1 0-0.8 10 ^3/uL Basophils # (Auto) 0.1 0-0.2 10 ^3/uL Nucleated Red Blood Cells 0.0 % Sodium Level 140 136-145 mmol/L Potassium Level 3.8 3.5-5.1 mmol/L Chloride Level 106 98-107 mmol/L Carbon Dioxide Level 25 20-31 mmol/L Anion Gap 9 5-15 Blood Urea Nitrogen 13 9-23 mg/dL Creatinine 0.72 0.550-1.02 mg/dL Glomerular Filtration Rate Calc 95 >90 mL/min BUN/Creatinine Ratio 18.1 10.0-20.0 Serum Glucose 194 H 74-106 mg/dL Hemoglobin A1c 9.0 H <5.7 % A1C Calcium Level 9.8 8.7-10.4 mg/dL Total Bilirubin 0.8 0.2-1.0 mg/dL Aspartate Amino Transferase (AST) 16 13-40 U/L Alanine Aminotransferase (ALT) 24 7-40 U/L Alkaline Phosphatase 108 46-116 U/L B-Type Natriuretic Peptide 20.86 0-100 pg/mL Total Protein 7.7 5.7-8.2 g/dL Albumin 4.6 3.2-4.8 g/dL Current Medications Medications (Trade) Dose Ordered Sig/Richardson Route Start Time Stop Time Status Last Admin Ondansetron HCl (Zofran) 4 mg ONCE ONCE IV 03/06/25 11:45 03/06/25 11:46 DC 03/06/25 12:04 Meclizine HCl (Antivert Tablet) 50 mg ONCE ONCE PO 03/06/25 11:45 03/06/25 11:46 DC 03/06/25 12:04 Acetaminophen (Tylenol Tablet Or Capsule) 1,000 mg ONCE ONCE PO 03/06/25 11:45 03/06/25 11:46 DC 03/06/25 12:04 Aspirin 325 mg ONCE ONCE PO 03/06/25 13:30 03/06/25 13:31 DC 03/06/25 13:55 Morphine Sulfate 2 mg ONCE ONCE IV 03/06/25 13:30 03/06/25 13:31 DC 03/06/25 13:55 Metoclopramide HCl (Reglan Injection) 10 mg ONCE ONCE IV 03/06/25 13:30 03/06/25 13:31 DC 03/06/25 13:55 Ceftriaxone Sodium/Dextrose 50 ml @ 50 mls/hr ONCE ONCE IV 03/06/25 14:45 03/06/25 15:44 DC 03/06/25 15:26 PROCEDURE(s): HWOCT - HEAD WITHOUT CONTRAST REASON: dizzy, gen weak, n/v, occipital ARGUETA ORDER NUMBER(s): [id number], ACCESSION NUMBER(s): [id number] CLINICAL INFORMATION: Headache, generalized weakness. Nausea and vomiting. TECHNIQUE: Axial imaging was obtained through the brain without contrast. Coronal and sagittal reformatted images were obtained, reviewed, and stored. Images were reviewed in brain and bone windows. All CT scans at this medical facility are performed using dose modulation techniques as appropriate to a performed exam including the following: Automated exposure control was utilized; adjustment of the MA and/or KV according to patient size; and use of iterative reconstruction technique. CTDIvol = 60.02 mGy DLP = 987.72 mGy-cm COMPARISON: CT HEAD WITHOUT CONTRAST on DOS: 07/02/23, CT HEAD WITHOUT CONTRAST on DOS: 03/15/23 FINDINGS: There is no acute intracranial hemorrhage. No mass effect or midline shift. The ventricles and sulci are within normal limits in size for age. Basal cisterns are patent. The calvarium is unremarkable. Paranasal sinuses and mastoid air cells are clear. IMPRESSION: No CT evidence of acute intracranial abnormality. EDURE(s): CXRP - CHEST PORTABLE REASON: dizzy, gen weak ORDER NUMBER(s): [id number], ACCESSION NUMBER(s): [id number] EXAM: XY CHEST PORTABLE HISTORY: dizzy, gen weak COMPARISON: XY CHEST PORTABLE on DOS: 07/02/23, XY CHEST PORTABLE on DOS: 03/16/23 TECHNIQUE: Portable AP view of the chest was performed. FINDINGS: No no pneumothorax or consolidative infiltrates.. The heart is not enlarged. There are is an old Left mid clavicular fracture. There is abundant overlying adipose tissue. IMPRESSION: Obesity without evidence of acute intrathoracic process. X-Ray, Labs, Meds, VS Comment 59-year-old female with a history of hypertension, diabetes, cervical cancer in remission and morbid obesity complaining of headache, dizziness, nausea and generalized weakness Vitals remarkable for initial heart rate 101 Exam remarkable for somnolence, oriented x4, moves all extremities, patient is uncooperative with neuro exam due to discomfort. Strip independently interpreted by me: Sinus tach, rate 101, no ectopy. Head CT and chest x-ray unremarkable CBC unremarkable, CMP remarkable for glucose 194, BNP and troponin negative, UA abnormal consistent with UTI Patient treated with the following in the ED: Meclizine 50 mg p.o., Tylenol 1 g p.o., Zofran 4 mg IV, aspirin 325 mg p.o., morphine 2 mg IV, Reglan 10 mg IV, Rocephin 2 g IV On re-evaluation after meclizine, Zofran and Tylenol, patient stated she was still having headache, dizziness and nausea. P.o. aspirin, IV morphine and Reglan were ordered. There were no new focal neurologic deficits and blood pressure was 40/70 Plan is to admit the patient for IV antibiotics, brain MRI to rule out CVA and Neurology evaluation. Time of 1ST Reevaluation: 13:33 Reevaluation 1ST: Improved Patient Education/Counseling: Diagnosis, Treatment Family Education/Counseling: Diagnosis, Treatment Departure 1 Departure Time of Disposition: 13:33 Impression: Primary Impression: Encephalopathy acute Additional Impressions: Dizziness Headache Qualified Codes: R51.9 - Headache, unspecified Nausea & vomiting Qualified Codes: R11.2 - Nausea with vomiting, unspecified UTI (urinary tract infection) Qualified Codes: N39.0 - Urinary tract infection, site not specified Disposition: ADMITTED INPATIENT Admit to: Tele Condition: Guarded Critical Care Note Critical Care Time?: No Stability Stability form required: No Heart Score Heart Score: Heart Score Response (Comments) Value History N/A 0 EKG N/A 0 Age N/A 0 Risk Factors N/A 0 Troponin N/A 0 Total 0 I personally scribed for CLEVELAND PUCKETT MD ([email or web address]) on 03/06/25 at 16:19. Electronically submitted by Homero Chase ([email or web address]). CLEVELAND PUCKETT MD March 06, 2025 13:34
[2025-03-06] MEDS: ASPirin 325 MG TAB PO ONE (13:55)
[2025-03-06] MEDS: METOCLOPRAMIDE HCL 5MG/ml INJ 2ml VIAL IV ONE (13:55)
[2025-03-06] MEDS: MORPHINE SULFATE INJ 2 MG/ml SYRG IV ONE (13:55)
[2025-03-06 14:31] LABS: Urine Bacteria MOD /hpf (None Seen); Urine Blood 1+ /uL (Negative); Urine Clarity Turbid (Clear); Urine Color Colorless (Yellow); Urine Mucus FEW (None Seen); Urine Protein, UAD Negative (Negative); Urine Squamous Epithelial Cell None Seen /hpf (<5); Urine Urobilinogen Normal (Negative); Urine WBC 444 /HPF (0-5); Urine WBC Clumps PRESENT /hpf (None Seen); Urine pH 5.5 (5.0-9.0)
[2025-03-06] MEDS: cefTRIAXone 2GM/50ML D5W 50 ML IV ONE (15:26)
[2025-03-06] MEDS ORDERED: NITROGLYCERIN 0.4 MG SL TAB SL PRN (16:30)
[2025-03-06] MEDS ORDERED: MORPHINE SULFATE INJ 2 MG/ml SYRG IV PRN ×2 (16:30)
[2025-03-06] MEDS ORDERED: DEXTROSE (50%) 50ML SYRG IV PRN (16:30)
[2025-03-06] MEDS ORDERED: HYDROcodone-ACET 5/325MG TAB PO PRN (16:30)
--- NOTE | 2025-03-06 16:34 | DVHHP2 ---
History of Present Illness History of Present Illness 59-year-old female with a history of UTIs, hypertension, type 2 diabetes presents to the emergency room for altered level of consciousness. Patient became more alert when starting IV and patient was able to endorse nausea and vomiting which started today with associated dizziness. Review of Systems Respiratory: No: Cough, Dry, Shortness of breath, SOB with excertion, Wheezing, Hemoptysis, Pleuritic Pain, Sputum, Wheezing, Other Cardiovascular: No: Chest Pain, Palpitations, Orthopnea, Paroxysmal Noc. Dyspnea, Edema, Lt Headedness, Other Gastrointestinal: No: Nausea, Vomiting, Abdominal Pain, Diarrhea, Constipation, Melena, Hematochezia, Other Genitourinary: Dysuria, Frequency Allergies: Coded Allergies: NO KNOWN ALLERGIES (Unverified , 03/16/23) Exam Vital Signs Vital Signs Date Time Temp Pulse Resp B/P (MAP) Pulse Ox O2 Delivery O2 Flow Rate FiO2 03/06/25 16:00 86 13 95/58 (70) 95 03/06/25 13:59 98.0 98.0 03/06/25 11:51 Room Air* 0 21 General Appearance: Alert, Oriented X3, Cooperative Respiratory: Clear to auscultation, Normal air movement Cardiovascular: Regular rate, Normal S1, Normal S2, No murmurs Abdominal: Normal bowel sounds, Soft, No tenderness, No hepatospenomegaly Extremities: No clubbing Labs/Xrays Labs Test 03/06/25 14:42 03/06/25 14:12 03/06/25 12:51 03/06/25 11:45 Range/Units Lactic Acid Level 1.5 0.4-2.0 mmol/L Urine Color Colorless Yellow Urine Clarity Turbid H Clear Urine pH 5.5 5.0-9.0 Urine Specific [place] 1.010 1.001-1.035 Urine Protein Negative Negative Urine Ketones Negative Negative Urine Blood 1+ H Negative /uL Urine Nitrite 2+ H Negative Urine Bilirubin Negative Negative Urine Urobilinogen Normal Negative mg/dL Urine Leukocyte Esterase 3+ Negative /uL Urine RBC 19 0 - 4 /hpf Urine WBC Clumps Present None Seen /hpf Urine Microscopic WBC 444 H 0-5 /HPF Urine Squamous Epithelial Cells None seen <5 /hpf Urine Bacteria Mod H None Seen /hpf Urine Mucus Few None Seen Urine Glucose Normal Normal mg/dL Troponin I High Sensitivity 5 </=34 ng/L White Blood Count 8.0 4.4-10.8 10^3/uL Red Blood Count 4.42 4.0-5.20 10^6/uL Hemoglobin 13.8 12.2-16.2 g/dL Hematocrit 40.8 36.0-46.0 % Mean Corpuscular Volume 92.3 80.0-100.0 fL Mean Corpuscular Hemoglobin 31.2 28.0-32.0 pg Mean Corpuscular Hemoglobin Concent 33.8 32.0-36.0 g/dL Red Cell Distribution Width 13.6 11.8-14.3 % Platelet Count 285 140-450 10^3/uL Mean Platelet Volume 7.8 6.9-10.8 fL Neutrophils (%) (Auto) 61.2 37.0-80.0 % Lymphocytes (%) (Auto) 30.1 10.0-50.0 % Monocytes (%) (Auto) 6.2 0.0-12.0 % Eosinophils (%) (Auto) 1.5 0.0-7.0 % Basophils (%) (Auto) 1.0 0.0-2.0 % Neutrophils # (Auto) 4.9 1.6-8.6 10 ^3/uL Lymphocytes # (Auto) 2.4 0.4-5.4 10 ^3/uL Monocytes # (Auto) 0.5 0-1.3 10 ^3/uL Eosinophils # (Auto) 0.1 0-0.8 10 ^3/uL Basophils # (Auto) 0.1 0-0.2 10 ^3/uL Nucleated Red Blood Cells 0.0 % Sodium Level 140 136-145 mmol/L Potassium Level 3.8 3.5-5.1 mmol/L Chloride Level 106 98-107 mmol/L Carbon Dioxide Level 25 20-31 mmol/L Anion Gap 9 5-15 Blood Urea Nitrogen 13 9-23 mg/dL Creatinine 0.72 0.550-1.02 mg/dL Glomerular Filtration Rate Calc 95 >90 mL/min BUN/Creatinine Ratio 18.1 10.0-20.0 Serum Glucose 194 H 74-106 mg/dL Calcium Level 9.8 8.7-10.4 mg/dL Total Bilirubin 0.8 0.2-1.0 mg/dL Aspartate Amino Transferase (AST) 16 13-40 U/L Alanine Aminotransferase (ALT) 24 7-40 U/L Alkaline Phosphatase 108 46-116 U/L B-Type Natriuretic Peptide 20.86 0-100 pg/mL Total Protein 7.7 5.7-8.2 g/dL Albumin 4.6 3.2-4.8 g/dL Assessment/Plan Assessment/Plan 1. acute metabolic encephalopathy related to acute cystitis IV abx, neuro checks 2. acute cystitis with hematuria IV abx 3. type 2 diabetes with hypergycemia insulin SS 4. HTN continue with home meds Plan discussed with: Patient My Orders Orders - KURT JUAN Procedure Category Date Status Time Admit ADMIT 03/06/25 Verified 16:26 Allergies JANNET 03/06/25 Verified 16:26 2 Gm Sodium Diet DIET 03/06/25 Verified Dinner Hydrocodone-Acet PHA 03/06/25 Verified 5/325mg Tab ([place] 16:30 Condition: Fair JANNET 03/06/25 Verified 16:26 Enoxaparin Sodium PHA 03/07/25 Verified (Lovenox) 10:00 Morphine Sulfate PHA 03/06/25 Verified Injection 16:30 Nitroglycerin PHA 03/06/25 Verified Sublingual (Ntrostat 16:30 Morphine Sulfate PHA 03/06/25 Verified Injection 16:30 Stat Ekg For Chest [facility] 03/06/25 Verified Pain 16:26 Notify Of Changes [facility] 03/06/25 Verified From Base 16:26 Bus Driver/Monitor For [facility] 03/06/25 Verified 24 Hours 16:26 Emergency Dysrhythmia [facility] 03/06/25 Verified Protocol 16:26 Rhythm Strips Once [facility] 03/06/25 Verified Every Shift 16:26 Oxygen By Nasal RT 03/06/25 Verified Cannula 16:26 Ceftriaxone Ivpb PHA 03/07/25 Verified Rocephin 09:00 Ceftriaxone Ivpb PHA 03/06/25 Verified Rocephin 16:30 Baclofen Tablet PHA 03/06/25 Verified (Liorisal Tablet) 16:30 Hydrocodone-Acet PHA 03/06/25 Verified 5/325mg Tab ([place] 18:00 (Nf) Aspirin (Aspirin PHA 03/07/25 Verified Low Dose) 10:00 Glucose Blood PHA 03/06/25 Verified (Accu-Chek Comfort 17:00 Mild Sliding Scale PHA 03/06/25 Verified 17:00 Dextrose 50% Syringe PHA 03/06/25 Verified 16:30 Consistent DIET 03/06/25 Verified Carb([facility])Diabetes Dinner Date of Service: March 06, 2025 Billing Provider: DANIEL BRENNAN MD Common Visit Codes: [id number] INP/OBS CARE (MOD) KURT JUAN LAUNDRY ASSISTANT March 06, 2025 16:34
[2025-03-06] MEDS: InsuLIN REG 1unit/0.01ml Soln (100units/ml) SC SCH (17:00)
[2025-03-06] MEDS: cefTRIAXone 1GM/50ML D5W 50 ML IV ONE (17:23)
[2025-03-06] MEDS: ACCU-CHEK COMFORT CURVE STRIP VI SCH (17:23)
[2025-03-06] MEDS ORDERED: HYDROcodone-ACET 5/325MG TAB PO SCH (18:00)
--- NOTE | 2025-03-06 18:33 | ECG ---
[facility] Test Date: 2025-03-06 Test Time: 11:24:21 Pat Name: NAVA LEMUS Department: ED Room: 0289 Gender: F Flight Attendant: KAJAL : 1965 Requested By: CLEVELAND ZAAPTA Order Number: [id number] Reading MD: Kavon Rodriguez Measurements Intervals [place] Rate: 101 P: 59 ID: [id number] QRS: 16 QRSD: 93 T: 34 QT: 348 QTc: 452 Interpretive Statements Sinus tachycardia Low voltage, precordial leads Electronically Signed On 03-09-2025 12:43:25 PDT by Kavon Rodriguez Please click the below link to view image of tracing.
[2025-03-06 20:51] VITALS: PULSE 90; RESP 14; O2SAT 97
[2025-03-06 22:23] VITALS: BP 134/60; PULSE 89; RESP 16; RESP 18; TEMP 97.6; O2SAT 92; O2SAT 98
[2025-03-07 00:46] VITALS: BP 116/64; PULSE 82; RESP 16; TEMP 98.2; O2SAT 92
[2025-03-07 05:00] VITALS: BP 147/73; PULSE 87; RESP 16; TEMP 98.1; O2SAT 94
[2025-03-07 08:30] VITALS: BP 119/56; PULSE 80; RESP 18; TEMP 98; O2SAT 95
[2025-03-07] MEDS: BACLOFEN 10 MG TAB PO PRN (10:15)
[2025-03-07] MEDS: ASPirin 81 mg TAB PO SCH (10:17)
[2025-03-07] MEDS: ENOXAPARIN SOD 40 MG/0.4 ML SYRINGE SC SCH (10:18)
[2025-03-07] MEDS: cefTRIAXone 1GM/50ML D5W 50 ML IV SCH (10:20)
--- NOTE | 2025-03-07 11:38 | DVH ---
PROCEDURE: MRI BRAIN HEAD WO CONTRAST Indication: r.o cva COMPARISON: CT head 03/06/2025 TECHNIQUE: Multiplanar multisequence images of the brain are obtained. FINDINGS: There is no abnormal diffusion restriction. There is no intracranial hemorrhage. No extra-axial fluid collection, mass effect or midline shift. The ventricles are midline and normal in size. The cistern s are patent. Normal intracranial flow voids are preserved. No abnormal susceptibility signal. There are mild periventricular and subcortical white matter T2 and FLAIR hyperintense changes. The sinuses and mastoids are well pneumatized. The visualized orbits are unremarkable. Cervical spina l canal stenosis at C2-3, incompletely characterized. IMPRESSION: 1. No acute cerebrovascular ischemia. 2. Mild chronic microvascular ischemic changes. 3. Cervical spinal canal stenosis at C2-3, incompletely characterized. This can be further evaluated with MRI of the cervical spine.
[2025-03-07 12:33] VITALS: BP 140/57; PULSE 90; RESP 18; TEMP 98.3; O2SAT 97
--- NOTE | 2025-03-07 15:06 | DVHPN2 ---
Progress Note - Dictate vital signs Vital Sign Date Time Temp Pulse Resp B/P (MAP) Pulse Ox O2 Delivery O2 Flow Rate FiO2 03/07/25 12:33 98.3 90 18 140/57 (84) 97 98.3 03/07/25 08:00 Room Air* 0 21 Total Intake and Output 03/06/25 03/06/25 03/07/25 15:00 23:00 07:00 Intake Total 50 ml 0 ml Balance 50 ml 0 ml medications Current Medications Medications Dose Ordered Sig/Richardson Route Start Time Stop Time Status Last Admin Dose Admin Acetaminophen/ Hydrocodone Bitart 1 tab Q4HP PRN PO 03/06/25 16:30 Enoxaparin Sodium 40 mg DAILY SC 03/07/25 10:00 03/07/25 10:18 40 MG Morphine Sulfate 2 mg Q4HPRN PRN IV 03/06/25 16:30 Nitroglycerin 0.4 mg Q5MINP PRN SL 03/06/25 16:30 Morphine Sulfate 2 mg Q30M PRN IV 03/06/25 16:30 Ceftriaxone Sodium 50 ml @ 100 mls/hr DAILY@09 IV 03/07/25 09:00 03/07/25 10:20 100 MLS/HR Baclofen 10 mg Q8HPRN PRN PO 03/06/25 16:30 03/07/25 10:15 10 MG Aspirin 81 mg DAILY PO 03/07/25 10:00 03/07/25 10:17 81 MG Diagnostic Test (Pha) 1 strip ACHS 03/06/25 17:00 03/07/25 12:05 1 STRIP Insulin Human Regular ACHS SC 03/06/25 17:00 03/07/25 12:13 4 UNITS Dextrose 50 ml UD PRN IV 03/06/25 16:30 laboratory and microbiology Laboratory Tests 03/06/25 11:45 Test 03/06/25 11:45 Range/Units Serum Glucose 194 H 74-106 mg/dL SHEFALI STRATTON NP March 07, 2025 15:06
[2025-03-07] MEDS ORDERED: LEVO500T91 PO (15:33)
--- NOTE | 2025-03-07 15:35 | DVHDS2 ---
Discharge Summary Date of Admission March 06, 2025 at 16:26 Date of Discharge: March 07, 2025 Labs/Diagnostic Data: Laboratory Results Test 03/07/25 12:00 03/06/25 14:42 03/06/25 14:12 03/06/25 12:51 POC Glucose 221 mg/dl (70-106) Lactic Acid Level 1.5 mmol/L (0.4-2.0) Urine Color Colorless (Yellow) Urine Clarity Turbid (Clear) Urine pH 5.5 (5.0-9.0) Urine Specific [place] 1.010 (1.001-1.035) Urine Protein Negative (Negative) Urine Ketones Negative (Negative) Urine Blood 1+ /uL (Negative) Urine Nitrite 2+ (Negative) Urine Bilirubin Negative (Negative) Urine Urobilinogen Normal mg/dL (Negative) Urine Leukocyte Esterase 3+ /uL (Negative) Urine RBC 19 /hpf (0 - 4) Urine WBC Clumps Present /hpf (None Seen) Urine Microscopic WBC 444 /HPF (0-5) Urine Squamous Epithelial Cells None seen /hpf (<5) Urine Bacteria Mod /hpf (None Seen) Urine Mucus Few (None Seen) Urine Glucose Normal mg/dL (Normal) Troponin I High Sensitivity 5 ng/L (</=34) Test 03/06/25 11:45 White Blood Count 8.0 10^3/uL (4.4-10.8) Red Blood Count 4.42 10^6/uL (4.0-5.20) Hemoglobin 13.8 g/dL (12.2-16.2) Hematocrit 40.8 % (36.0-46.0) Mean Corpuscular Volume 92.3 fL (80.0-100.0) Mean Corpuscular Hemoglobin 31.2 pg (28.0-32.0) Mean Corpuscular Hemoglobin Concent 33.8 g/dL (32.0-36.0) Red Cell Distribution Width 13.6 % (11.8-14.3) Platelet Count 285 10^3/uL (140-450) Mean Platelet Volume 7.8 fL (6.9-10.8) Neutrophils (%) (Auto) 61.2 % (37.0-80.0) Lymphocytes (%) (Auto) 30.1 % (10.0-50.0) Monocytes (%) (Auto) 6.2 % (0.0-12.0) Eosinophils (%) (Auto) 1.5 % (0.0-7.0) Basophils (%) (Auto) 1.0 % (0.0-2.0) Neutrophils # (Auto) 4.9 10 ^3/uL (1.6-8.6) Lymphocytes # (Auto) 2.4 10 ^3/uL (0.4-5.4) Monocytes # (Auto) 0.5 10 ^3/uL (0-1.3) Eosinophils # (Auto) 0.1 10 ^3/uL (0-0.8) Basophils # (Auto) 0.1 10 ^3/uL (0-0.2) Nucleated Red Blood Cells 0.0 % Sodium Level 140 mmol/L (136-145) Potassium Level 3.8 mmol/L (3.5-5.1) Chloride Level 106 mmol/L (98-107) Carbon Dioxide Level 25 mmol/L (20-31) Anion Gap 9 (5-15) Blood Urea Nitrogen 13 mg/dL (9-23) Creatinine 0.72 mg/dL (0.550-1.02) Glomerular Filtration Rate Calc 95 mL/min (>90) BUN/Creatinine Ratio 18.1 (10.0-20.0) Serum Glucose 194 mg/dL (74-106) Hemoglobin A1c 9.0 % A1C (<5.7) Calcium Level 9.8 mg/dL (8.7-10.4) Total Bilirubin 0.8 mg/dL (0.2-1.0) Aspartate Amino Transferase (AST) 16 U/L (13-40) Alanine Aminotransferase (ALT) 24 U/L (7-40) Alkaline Phosphatase 108 U/L (46-116) B-Type Natriuretic Peptide 20.86 pg/mL (0-100) Total Protein 7.7 g/dL (5.7-8.2) Albumin 4.6 g/dL (3.2-4.8) Other Laboratory Tests 03/06/25 11:45 Brief Hx & Hospital Course: 59-year-old female with a history of UTIs, hypertension, type 2 diabetes presents to the emergency room for altered level of consciousness. Patient became more alert when starting IV and patient was able to endorse nausea and vomiting which started today with associated dizziness. Patient was admitted on March 06, 2025 for metabolic encephalopathy most likely related to uncontrolled hypertension. Patient reported dizziness, also related to uncontrolled hypertension. Patient was found to have a UTI with gram-negative rods and was started on IV antibiotics. MRI had no acute findings. CT of the head was negative. Chest x-ray also had no acute findings. I updated patient and her family at bedside. Levaquin was sent to her pharmacy and she was instructed to follow-up with her PCP in 1 week. There were no complaints or new complaints upon discharge, all questions and concerns were answered. Patient was advised to return to the ER or call 911 if any headaches, dizziness, shortness of breath, chest pain, bleeding, fevers, or worsening of medical condition. Patient/Family was counseled about treatment plan, medications, possible side effects, patient�verbalized understanding. All questions were answered to the best of my ability. The patient symptoms improved and they are okay to be DC. Condition at Discharge: Stable Final Diagnosis/Problems List Metabolic encephalopathy Dizziness HTN UTI acute cystitis with hematuria type 2 diabetes with hypergycemia Discharge Disposition: Home Discharge Instruct/Medications Diet: Cardiac 2g Na,low cholest Activity: No Restrictions, As Tolerated Follow Up/Referral: pcp 1 week Discharge Statement: "Patient was advised to return to the ER or call 911 if any headaches, dizziness, shortness of breath, chest pain, abdominal pain, bleeding, fevers, or worsening of medical condition. Patient was counseled about treatment plan, medications, possible side effects, patient�verbalized understanding. All questions were answered to the best of my ability. This discharge took greater then 30 minutes in planning, reviewing documentation, counseling the patient, and discussing with other team members." ASSESSMENT ASSESSMENT Assessment Metabolic encephalopathy Dizziness HTN UTI SHEFALI STRATTON NP March 07, 2025 15:35
[2025-03-07] MEDS: levoFLOXacin 500MG 100 ML IV SCH (15:58)
[2025-03-07 16:41] VITALS: BP 133/59; PULSE 84; RESP 17; TEMP 98.3; O2SAT 95
== END 2025-03-07 17:43 | disposition home or self-care (01) | DRG 463 ==
LOC: EDBD 11:17 → ER 11:24 → OVERFLOW 16:26 → WEST WING 21:58
PROVIDERS: ADMIT Nurse Practitioner Family; ATTEND Nurse Practitioner Family
DX: N30.01 Acute cystitis with hematuria (principal); G93.41 Metabolic encephalopathy; I10 Essential (primary) hypertension; E11.65 Type 2 diabetes mellitus with hyperglycemia; E66.9 Obesity, unspecified; B96.89 Other specified bacterial agents as the cause of diseases classified elsewhere; Z68.35 Body mass index [BMI] 35.0-35.9, adult; Z90.710 Acquired absence of both cervix and uterus; Z86.73 Personal history of transient ischemic attack (TIA), and cerebral infarction without residual deficits; Z85.42 Personal history of malignant neoplasm of other parts of uterus; Z79.4 Long term (current) use of insulin; Z79.899 Other long term (current) drug therapy; Z79.82 Long term (current) use of aspirin
CPT/HCPCS: 36415; 70450; 70551; 71045; 80053; 81001; 82962; 83036; 83605; 83880; 84484; 85025; 87040; 87086; 87088; 87186; 93005; 96374; 96375; G0378; J1815; J1956; J2405

== ENCOUNTER 2025-03-25 20:44 | Inpatient (IN) | payer MEDICAID ==
[~2025-03-25] VITALS: Ht 165.1 cm; Wt 99.0 kg
[~2025-03-25 20:44] MED LIST changes: -BACL10TA PO; -CEFP200T15 PO; -CIPR-273 PO; -IBUP-1453 PO; +LEVO500T91 PO; -SULF800T23 PO
--- NOTE | 2025-03-25 21:22 | ED.PDOC ---
General HPI Comments 59-year-old female came to ER due to urinary issues. Patient was discharged your last March 07, diagnosed with metabolic encephalopathy, hypertension, diabetes, and UTI. Was sent home with Levaquin as home medications. Patient unable to fill up a prescription. Three days ago, patient started experiencing suprapubic abdominal pain, low back pain, dysuria and urinary frequency. Patient was seen at urgent care, prescribe Macrobid for the infection. However persistence of symptoms prompted patient to come to the emergency room. Chief Complaint: Urinary Time Seen by MD: 21:22 Primary Care Provider: OSKAR Reviewed notes: Nurses Notes Allergies: Coded Allergies: NO KNOWN ALLERGIES (Unverified , 03/16/23) Home Meds Active Scripts Levofloxacin Hemihydrate (LEVAQUIN 500 MG) 500 Mg Tab, 500 MG PO DAILY for 5 Day s, #5 TAB Prov:SHEFALI STRATTON RELAY TELEGRAPHER 03/07/25 Hydrocodone-Acetaminophen (Hydrocodone Bitartrate/AC 5-325 mg) 1 Tab Tab, 1 TAB PO Q6HR, #10 TAB as needed for pain do not take with baclofen Prov:YONATHAN GONZALEZ Q RELAY TELEGRAPHER 04/23/24 Acetaminophen (Acetaminophen) 500 Mg Tab, 500 MG PO Q4HPRN, #30 TAB 0 Refills Prov:MATT PARMAR 03/29/24 Reported Medications Insulin Glargine (Lantus Solostar) 100 Unit/Ml Inj, 15 UNIT SC DAILY 07/04/23 Ntpwzphqgu-Cqrdthddm-Awuydbndn (Amlodipine/Valsartan/Hctz 5-160-12.5 mg) 1 Tab Tab, 5-160 PO DAILY 07/04/23 Aspirin (Aspirin Low Dose) 81 Mg Chw, 1 TAB PO DAILY 07/04/23 Information Source: Patient Mode of Arrival: Ambulatory Severity: Moderate Inability to void: Mild Timing: Days Duration: Intermittent Has not urinated for: Minutes Onset: Spontaneous Symptoms: Dysuria, Frequency History of: UTI Location: Suprapubic associated signs and symptoms: Abdominal Pain, Back Pain, Dysuria, Frequency Past Medical History PAST MEDICAL HISTORY: Cancer, CVA, DM, HTN, UTI'S Surgical History: Hysterectomy AGRICULTURAL ENGINEER History: No Pertinent AGRICULTURAL ENGINEER History Family History Family History: Reviewed,noncontributory to illness Social History Smoker: Non-Smoker Alcohol: Denies ETOH Use Drugs: Denies Drug Use Lives In: Home Constitutional: denies: chills, diaphoresis, fatigue, fever, malaise, sweats, weakness, others EENTM: denies: blurred vision, double vision, ear bleeding, ear discharge, ear drainage, ear pain, ear ringing, eye pain, eye redness, hearing loss, mouth pain, mouth swelling, nasal discharge, nose bleeding, nose congestion, nose pain, photophobia, tearing, throat pain, throat swelling, voice changes, others Respiratory: denies: cough, hemoptysis, orthopnea, SOB at rest, shortness of breath, SOB with excertion, stridor, wheezing, others Cardiovascular: denies: chest pain, dizzy spells, diaphoresis, Dyspnea on exertion, edema, irregular heart beat, left arm pain, lightheadedness, palpitations, PND, syncope, others Gastrointestinal: reports: abdominal pain; denies: abdomen distended, blood streaked bowels, constipated, diarrhea, dysphagia, difficulty swallowing, hematemesis, melena, nausea, poor appetite, poor fluid intake, rectal bleeding, rectal pain, vomiting, others Genitourinary: reports: dysuria, frequency; denies: abnormal vagina bleeding, burning, dyspareunia, flank pain, hematuria, incontinence, pain, , vagina discharge, urgency, others Neurological: denies: dizziness, fainting, headache, left sided numbness, left sided weakness, numbness, paresthesia, pre-existing deficit, right sided numbness, right sided weakness, seizure, speech problems, tingling, tremors, weakness, others Musculoskeletal: reports: back pain; denies: gout, joint pain, joint swelling, muscle pain, muscle stiffness, neck pain, others Integumetry: denies: bruises, change in color, change in hair/nails, dryness, laceration, lesions, lumps, rash, wounds, others Allergic/Immunocompromised: denies: Difficulty Healing, Frequent Infections, Hives, Itching, others Hematologic/Lymphatic: denies: anemia, blood clots, easy bleeding, easy bruising, swollen glands, others Endocrine: denies: excessive hunger, excessive sweating, excessive thirst, excessive urination, flushing, intolerance to cold, intolerance to heat, unexplained weight gain, unexplained weight loss, others Psychiatric: denies: anxiety, bipolar disorder, depression, hopeless, panic disorder, schizophrenia, sleepless, suicidal, others Physical Exam General Appearance: No Apparent Distress, Normal HEENT: Normal ENT Inspection, Pharynx Normal, TMs Normal Neck: Full Range of Motion, Non-Tender, Normal, Normal Inspection Respiratory: Chest Non-Tender, Lungs Clear, No Accessory Muscle Use, No Respiratory Distress, Normal Breath Sounds Cardiovascular: No Edema, No JVD, No Murmur, No Gallop, Normal Peripheral Pulses, Regular Rate/Rhythm Breast Exam: Deferred Gastrointestinal: No Organomegaly, No Pulsatile Mass, Normal Bowel Sounds, Soft, Suprapubic, Tenderness Genitalia: Deferred Pelvic: Deferred Rectal: Deferred Extremities: No calf tenderness, Normal capillary refill, Normal inspection, Normal range of motion, Non-tender, No pedal edema Musculoskeletal : Apperance: Normal Neurologic: Alert, enlisted advisor II-XII nml as Tested, No Motor Deficits, Normal Affect, Normal Mood, No Sensory Deficits Cerebellar Function: Normal Reflexes: Normal Skin: Dry, Normal Color, Warm Lymphatic: No Adenopathy Was a procedure done? Was a procedure done?: No Differential Diagnosis Kidney stone (Female): Pyelonephritis, Renal failure, Strain, Urinary obstruction, Urolithiasis Urinary Problem (Female): Pyelonephritis, Urinary retention, Urolithiasis, UTI X-Ray, Labs, Meds, VS Vital Signs Date Time Temp Pulse Resp B/P (MAP) Pulse Ox O2 Delivery O2 Flow Rate FiO2 03/25/25 21:13 98.1 94 18 151/74 (99) 96 98.1 Lab Test 03/25/25 22:30 03/25/25 22:20 Range/Units Urine Color Light-yellow Yellow Urine Clarity Turbid H Clear Urine pH 5.5 5.0-9.0 Urine Specific [place] 1.030 1.001-1.035 Urine Protein Trace H Negative Urine Ketones Negative Negative Urine Blood Trace H Negative /uL Urine Nitrite Negative Negative Urine Bilirubin Negative Negative Urine Urobilinogen Normal Negative mg/dL Urine Leukocyte Esterase 3+ Negative /uL Urine RBC 27 0 - 4 /hpf Urine Microscopic WBC 46 H 0-5 /HPF Urine Squamous Epithelial Cells Few <5 /hpf Urine Bacteria Few H None Seen /hpf Urine Mucus Few None Seen Urine Glucose 4+ H Normal mg/dL White Blood Count 8.5 4.4-10.8 10^3/uL Red Blood Count 4.19 4.0-5.20 10^6/uL Hemoglobin 13.3 12.2-16.2 g/dL Hematocrit 39.6 36.0-46.0 % Mean Corpuscular Volume 94.7 80.0-100.0 fL Mean Corpuscular Hemoglobin 31.8 28.0-32.0 pg Mean Corpuscular Hemoglobin Concent 33.6 32.0-36.0 g/dL Red Cell Distribution Width 13.8 11.8-14.3 % Platelet Count 313 140-450 10^3/uL Mean Platelet Volume 8.2 6.9-10.8 fL Neutrophils (%) (Auto) 54.2 37.0-80.0 % Lymphocytes (%) (Auto) 34.4 10.0-50.0 % Monocytes (%) (Auto) 8.4 0.0-12.0 % Eosinophils (%) (Auto) 2.0 0.0-7.0 % Basophils (%) (Auto) 1.0 0.0-2.0 % Neutrophils # (Auto) 4.6 1.6-8.6 10 ^3/uL Lymphocytes # (Auto) 2.9 0.4-5.4 10 ^3/uL Monocytes # (Auto) 0.7 0-1.3 10 ^3/uL Eosinophils # (Auto) 0.2 0-0.8 10 ^3/uL Basophils # (Auto) 0.1 0-0.2 10 ^3/uL Nucleated Red Blood Cells 0.1 % Sodium Level 142 136-145 mmol/L Potassium Level 4.0 3.5-5.1 mmol/L Chloride Level 111 H 98-107 mmol/L Carbon Dioxide Level 24 20-31 mmol/L Anion Gap 7 5-15 Blood Urea Nitrogen 18 9-23 mg/dL Creatinine 1.10 H 0.550-1.02 mg/dL Glomerular Filtration Rate Calc 57 >90 mL/min BUN/Creatinine Ratio 16.4 10.0-20.0 Serum Glucose 169 H 74-106 mg/dL Lactic Acid Level 0.8 0.4-2.0 mmol/L Calcium Level 10.2 8.7-10.4 mg/dL Time of 1ST Reevaluation: 21:19 Reevaluation 1ST: Unchanged Patient Education/Counseling: Diagnosis, Treatment Family Education/Counseling: Need For Follow Up Sepsis Sepsis Reasesment Focused Exam Orders: Laboratory Tests 03/25/25 22:20: Lactic Acid Level 0.8 Departure 1 Departure Time of Disposition: 22:55 (Patient with a complicated urinary tract infection. Patient is not septic. We will empirically cover patient with fluids and antibiotics and admit patient for further workup) Impression: Primary Impression: Complicated UTI (urinary tract infection) Disposition: ADMITTED INPATIENT Admit to: Med Surg Condition: Serious Critical Care Note Critical Care Time?: Yes Critical care comment: Intractable abdominal pain Authorized and Performed by: Mitch Curiel MD Total critical care time: Approximately 39 minutes Due to a high probability of clinically significant, life threatening deterioration, the patient required my highest level of preparedness to intervene emergently and I personally spent this critical care time directly and personally managing the patient. This critical care time included obtaining a history; examining the patient; pulse oximetry; ordering and review of studies; arranging urgent treatment with development of a management plan; evaluation of patient's response to treatment; frequent reassessment; and, discussions with other providers. This critical care time was performed to assess and manage the high probability of imminent, life-threatening deterioration that could result in multi-organ failure. It was exclusive of separately billable procedures and treating other patients and teaching time. Please see my other sections and the rest of the note for further information on patient assessment and treatment. Stability Stability form required: No Heart Score Heart Score: Heart Score Response (Comments) Value History N/A 0 EKG N/A 0 Age N/A 0 Risk Factors N/A 0 Troponin N/A 0 Total 0 I personally scribed for MITCH CURIEL MD ([email or web address]) on 03/25/25 at 21:22. Electronically submitted by Juan Olson (Mobi [employer]ider). I personally scribed for MITCH CURIEL MD ([email or web address]) on 03/25/25 at 21:55. Electronically submitted by Juan Olson (Mobi Rider). MITCH CURIEL MD March 25, 2025 21:22
[2025-03-25 22:39] LABS: Basophils # (auto) 0.1 10 ^3/uL (0-0.2); Eosinophils # (auto) 0.2 10 ^3/uL (0-0.8); Hematocrit 39.6 % (36.0-46.0); Hemoglobin 13.3 g/dL (12.2-16.2); Lymphocytes # (auto) 2.9 10 ^3/uL (0.4-5.4); Lymphocytes % (auto) 34.4 % (10.0-50.0); Mean Corpuscular Hemoglobin 31.8 pg (28.0-32.0); Mean Corpuscular Hgb Conc. 33.6 g/dL (32.0-36.0); Mean Corpuscular Volume 94.7 fL (80.0-100.0); Monocytes # (auto) 0.7 10 ^3/uL (0-1.3); Monocytes % (auto) 8.4 % (0.0-12.0); Neutrophils # (auto) 4.6 10 ^3/uL (1.6-8.6); Neutrophils % (auto) 54.2 % (37.0-80.0); Nucleated Red Blood Cells % 0.1 %; Platelet Count (auto) 313 10^3/uL (140-450); Red Blood Cells 4.19 10^6/uL (4.0-5.20); Red Cell Distribution Width 13.8 % (11.8-14.3); White Blood Cell 8.5 10^3/uL (4.4-10.8)
[2025-03-25 22:43] LABS: Urine Bacteria FEW /hpf (None Seen); Urine Blood TRACE /uL (Negative); Urine Clarity Turbid (Clear); Urine Color Light-Yellow (Yellow); Urine Mucus FEW (None Seen); Urine Protein, UAD TRACE (Negative); Urine Squamous Epithelial Cell FEW /hpf (<5); Urine Urobilinogen Normal (Negative); Urine WBC 46 /HPF (0-5); Urine pH 5.5 (5.0-9.0)
[2025-03-25 22:44] LABS: Sodium 142 mmol/L (136-145)
[2025-03-25 22:45] LABS: Anion Gap 7 (5-15); Calcium 10.2 mg/dL (8.7-10.4); Carbon Dioxide 24 mmol/L (20-31)
[2025-03-25 22:50] LABS: BUN/Creatinine Ratio 16.4 (10.0-20.0); Blood Urea Nitrogen 18 mg/dL (9-23)
[2025-03-25 22:51] LABS: Chloride 111 mmol/L (98-107); Glucose 169 mg/dL (74-106)
[2025-03-26] VITALS (9 sets, daily range): BP systolic 120–171; BP diastolic 55–78; PULSE 77–96; RESP 16–19; TEMP 97.5–98.3; O2SAT 93–97
[2025-03-26] MEDS ORDERED: ONDANSETRON HCL 4 MG/2 ML VIAL IV PRN (00:15)
[2025-03-26] MEDS ORDERED: NITROGLYCERIN 0.4 MG SL TAB SL PRN (00:15)
[2025-03-26] MEDS ORDERED: DOCUSATE SOD 100 MG CAP PO PRN (00:15)
[2025-03-26] MEDS ORDERED: MORPHINE SULFATE INJ 2 MG/ml SYRG IV PRN ×2 (00:15)
[2025-03-26] MEDS: SODIUM CHLORIDE 0.9% 1,000 ML IV ONE (02:40)
[2025-03-26] MEDS: CEFEPIME 2GM/50ML NS 50 ML IV ONE (02:45)
[2025-03-26] MEDS: PHENAZOPYRIDINE HCL 100 MG TAB PO ONE (03:12)
[2025-03-26] MEDS: MORPHINE SULFATE 4 MG/ML SYR/VIAL IV ONE (03:13)
[2025-03-26] MEDS: ONDANSETRON HCL 4 MG/2 ML VIAL IV ONE (03:14)
[2025-03-26] MEDS: ACETAMINOPHEN 325 MG TAB PO PRN (04:42)
[2025-03-26] MEDS ORDERED: NITR-52 PO (04:59)
[2025-03-26] MEDS ORDERED: ATOR20TA50 PO (05:01)
[2025-03-26] MEDS ORDERED: EMPA1TAB3 PO (05:02)
[2025-03-26] MEDS: SODIUM CHLORIDE 0.9% 1,000 ML IV SCH (05:22)
--- NOTE | 2025-03-26 08:48 | DVHPN2 ---
Progress Note - Dictate vital signs Vital Sign Date Time Temp Pulse Resp B/P (MAP) Pulse Ox O2 Delivery O2 Flow Rate FiO2 03/26/25 05:12 90 18 97 Room Air* 0 21 03/26/25 04:20 136/78 03/26/25 04:20 98.3 98.3 medications Current Medications Medications Dose Ordered Sig/Richardson Route Start Time Stop Time Status Last Admin Dose Admin Sodium Chloride 1,000 ml @ 60 mls/hr [id number] IV 03/26/25 00:15 03/26/25 05:22 Acetaminophen 325 mg Q4HP PRN PO 03/26/25 00:15 03/26/25 04:42 Acetaminophen/ Hydrocodone Bitart 1 tab Q4HP PRN PO 03/26/25 00:15 Ondansetron HCl 4 mg Q4HP PRN IV 03/26/25 00:15 Docusate Sodium 100 mg BIDPRN PRN PO 03/26/25 00:15 Morphine Sulfate 2 mg Q4HPRN PRN IV 03/26/25 00:15 Nitroglycerin 0.4 mg Q5MINP PRN SL 03/26/25 00:15 Morphine Sulfate 2 mg Q30M PRN IV 03/26/25 00:15 laboratory and microbiology Laboratory Tests 03/25/25 22:20 Test 03/25/25 22:20 Range/Units Serum Glucose 169 H 74-106 mg/dL SHEFALI STRATTON NP March 26, 2025 08:48
--- NOTE | 2025-03-26 08:48 | DVHHP2 ---
History of Present Illness 59 y/o female patient presents with dysuria, urinary frequency, and abdominal pa in x3 days. Patient was seen at urgent care for same complaint and was prescribed Macrobid. While in the emergency department the patient was evaluated by the provider, As per provider: Labs, vital signs, and imagining monitored. Patient will be admitted for further evaluation and treatment. I discussed admission with the patient/family and is in agreement to treatment plan. Patient Family History: Diabetes mellitus grandmother Hypertension grandmother Allergies: Coded Allergies: NO KNOWN ALLERGIES (Unverified , 03/16/23) Home Meds Active Scripts Levofloxacin Hemihydrate (LEVAQUIN 500 MG) 500 Mg Tab, 500 MG PO DAILY for 5 Days, #5 TAB Prov:SHEFALI STRATTON PSYCHOLOGY TECHNICIAN 03/07/25 Hydrocodone-Acetaminophen (Hydrocodone Bitartrate/AC 5-325 mg) 1 Tab Tab, 1 TAB PO Q6HR, #10 TAB as needed for pain do not take with baclofen Prov:YONATHAN GONZALEZ Q PSYCHOLOGY TECHNICIAN 04/23/24 Acetaminophen (Acetaminophen) 500 Mg Tab, 500 MG PO Q4HPRN, #30 TAB 0 Refills Prov:MATT PARMAR PA 03/29/24 Reported Medications Empagliflozin (Jardiance) 25 Mg Tab, 25 MG PO, TAB 03/26/25 Atorvastatin Calcium (ATORVASTATIN CALCIUM) 20 Mg Tab, 1 TAB PO DAILY, #30 TAB 5 Refills 03/26/25 Nitrofurantoin (Nitrofurantoin) 100 Mg Cap, 1 CAP PO BID, #10 CAP 03/26/25 Insulin Glargine (Lantus Solostar) 100 Unit/Ml Inj, 15 UNIT SC DAILY 07/04/23 Oipzmadlbt-Myfjvrkfq-Zrurjixab (Amlodipine/Valsartan/Hctz 5-160-12.5 mg) 1 Tab Tab, 5-160 PO DAILY 07/04/23 Aspirin (Aspirin Low Dose) 81 Mg Chw, 1 TAB PO DAILY 07/04/23 Current Medications Current Medications Medications (Trade) Dose Ordered Sig/Richardson Route PRN Reason Start Time Stop Time Status Last Admin Sodium Chloride 1,000 ml @ 60 mls/hr [id number] IV 03/26/25 00:15 03/26/25 05:22 Acetaminophen (Tylenol Tablet) 325 mg Q4HP PRN PO MILD PAIN (1-3 PAIN SCALE) 03/26/25 00:15 03/26/25 04:42 Acetaminophen/ Hydrocodone Bitart ([place] 5/325MG Tab) 1 tab Q4HP PRN PO MODERATE PAIN (4-6 PAIN SCALE) 03/26/25 00:15 03/26/25 16:24 Ondansetron HCl (Zofran) 4 mg Q4HP PRN IV NAUSEA / VOMITING 03/26/25 00:15 Docusate Sodium (Colace Capsule) 100 mg BIDPRN PRN PO FOR CONSTIPATION 03/26/25 00:15 Morphine Sulfate 2 mg Q4HPRN PRN IV SEVERE PAIN (7-10 PAIN SCALE) 03/26/25 00:15 Nitroglycerin (Ntrostat Sublingual) 0.4 mg Q5MINP PRN SL FOR CHEST PAIN 03/26/25 00:15 Morphine Sulfate 2 mg Q30M PRN IV FOR CHEST PAIN 03/26/25 00:15 Levofloxacin/ Dextrose 100 ml @ 100 mls/hr DAILY IV 03/26/25 10:00 03/26/25 09:45 Diagnostic Test (Pha) (Accu-Chek Comfort Curve T) 1 strip ACHS 03/26/25 17:00 03/26/25 17:00 Insulin Human Regular (InsuLIN R) HS SC 03/26/25 22:00 Insulin Human Regular (InsuLIN R) AC SC 03/26/25 17:00 03/26/25 17:41 Dextrose 50 ml UD PRN IV Blood Sugar LESS THAN 60 03/26/25 11:45 Atorvastatin Calcium (Lipitor) 20 mg HS PO 03/26/25 22:00 Losartan Potassium (Cozaar Tablet) 100 mg DAILY PO 03/27/25 10:00 Enoxaparin Sodium (Lovenox) 40 mg DAILY SC 03/27/25 10:00 Famotidine (Pepcid Tablet) 40 mg DAILY PO 03/27/25 10:00 Amlodipine Besylate (Norvasc Tablet) 10 mg DAILY PO 03/27/25 10:00 Docusate Sodium (Colace Capsule) 100 mg BID PO 03/26/25 22:00 Review of Systems Constitutional: denies chills, denies fever, denies malaise Eyes: denies eye pain, denies vision change ENT: denies ear pain, denies headache, denies nasal congestion, denies painful swallowing, denies voice change Cardiovascular: denies chest pain, denies edema, denies orthopnea, denies palpitations, denies paroxysmal nocturnal dyspnea Respiratory: denies cough, denies shortness of breath Gastrointestinal: denies constipation, denies diarrhea, denies nausea, denies vomiting Genitourinary: denies dysuria, denies frequent urination, denies urethral discharge Musculoskeletal: denies back pain, denies joint pain, denies muscle pain Skin: denies bruising, denies itching, denies rash Neurological: denies focal weakness, denies headache, denies sensory changes Psychiatric: denies anxiety, denies depression Endocrine: denies polydipsia, denies polyuria Hematologic/Lymphatic: denies easy bleeding, denies easy bruising, denies enlarged lymph nodes Allergic/Immunologic: denies allergy, denies hives Vital Signs Vital Signs Date Time Temp Pulse Resp B/P (MAP) Pulse Ox O2 Delivery O2 Flow Rate FiO2 03/26/25 19:58 Room Air* 0 21 03/26/25 16:34 98.3 81 19 154/57 (89) 95 98.3 Physical Exam General Appearance: alert, no distress HEENT: EOMI, PERRLA, normal external inspect of ears, no icterus, no nasal drainage Neck: no carotid bruit, no jugular venous distention (JVD), no lymphadenopathy Chest: normal thorax Respiratory: clear to auscultation, normal air movement Cardiovascular: regular rate and rhythm, no diastolic murmur, no jugular venous distention (JVD), no rub, no systolic murmur Abdominal: soft, no hepatomegaly, no mass, no splenomegaly, no tenderness Genitourinary: grossly normal external Musculoskeletal: no joint tenderness, no swelling Extremities: normal pulses, no calf tenderness, no clubbing, no cyanosis, no edema Skin: no bruising, no jaundice, no rash Neurological: alert, No focal deficit Results Labs Test 03/26/25 17:15 03/25/25 22:30 03/25/25 22:20 Range/Units POC Glucose 170 H 70-106 mg/dl Urine Color Light-yellow Yellow Urine Clarity Turbid H Clear Urine pH 5.5 5.0-9.0 Urine Specific [place] 1.030 1.001-1.035 Urine Protein Trace H Negative Urine Ketones Negative Negative Urine Blood Trace H Negative /uL Urine Nitrite Negative Negative Urine Bilirubin Negative Negative Urine Urobilinogen Normal Negative mg/dL Urine Leukocyte Esterase 3+ Negative /uL Urine RBC 27 0 - 4 /hpf Urine Microscopic WBC 46 H 0-5 /HPF Urine Squamous Epithelial Cells Few <5 /hpf Urine Bacteria Few H None Seen /hpf Urine Mucus Few None Seen Urine Glucose 4+ H Normal mg/dL White Blood Count 8.5 4.4-10.8 10^3/uL Red Blood Count 4.19 4.0-5.20 10^6/uL Hemoglobin 13.3 12.2-16.2 g/dL Hematocrit 39.6 36.0-46.0 % Mean Corpuscular Volume 94.7 80.0-100.0 fL Mean Corpuscular Hemoglobin 31.8 28.0-32.0 pg Mean Corpuscular Hemoglobin Concent 33.6 32.0-36.0 g/dL Red Cell Distribution Width 13.8 11.8-14.3 % Platelet Count 313 140-450 10^3/uL Mean Platelet Volume 8.2 6.9-10.8 fL Neutrophils (%) (Auto) 54.2 37.0-80.0 % Lymphocytes (%) (Auto) 34.4 10.0-50.0 % Monocytes (%) (Auto) 8.4 0.0-12.0 % Eosinophils (%) (Auto) 2.0 0.0-7.0 % Basophils (%) (Auto) 1.0 0.0-2.0 % Neutrophils # (Auto) 4.6 1.6-8.6 10 ^3/uL Lymphocytes # (Auto) 2.9 0.4-5.4 10 ^3/uL Monocytes # (Auto) 0.7 0-1.3 10 ^3/uL Eosinophils # (Auto) 0.2 0-0.8 10 ^3/uL Basophils # (Auto) 0.1 0-0.2 10 ^3/uL Nucleated Red Blood Cells 0.1 % Sodium Level 142 136-145 mmol/L Potassium Level 4.0 3.5-5.1 mmol/L Chloride Level 111 H 98-107 mmol/L Carbon Dioxide Level 24 20-31 mmol/L Anion Gap 7 5-15 Blood Urea Nitrogen 18 9-23 mg/dL Creatinine 1.10 H 0.550-1.02 mg/dL Glomerular Filtration Rate Calc 57 >90 mL/min BUN/Creatinine Ratio 16.4 10.0-20.0 Serum Glucose 169 H 74-106 mg/dL Lactic Acid Level 0.8 0.4-2.0 mmol/L Calcium Level 10.2 8.7-10.4 mg/dL Microbiology Date/Time Source Procedure Growth Status 03/26/25 06:00 Nose MRSA Screen - Final Complete Plan 1. Acute cystitis Monitor, IV abx 2. DM II with hyperglycemia Monitor, insulin ss 3. Morbid obesity Monitor 4. HTN with DM II Monitor, medications Plan discussed with: Patient, Other SHEFALI STRATTON NP March 26, 2025 08:48
[2025-03-26] MEDS: levoFLOXacin 500MG 100 ML IV SCH (09:45)
[2025-03-26] MEDS ORDERED: DEXTROSE (50%) 50ML SYRG IV PRN (11:45)
[2025-03-26] MEDS: FLUCONAZOLE 100 MG TAB PO ONE (12:40)
[2025-03-26] MEDS: HYDROcodone-ACET 5/325MG TAB PO PRN (16:24)
[2025-03-26] MEDS: ACCU-CHEK COMFORT CURVE STRIP VI SCH (17:00)
[2025-03-26] MEDS: InsuLIN REG 1unit/0.01ml Soln (100units/ml) SC SCH ×2 (17:41→22:00)
[2025-03-26] MEDS: DOCUSATE SOD 100 MG CAP PO SCH (21:59)
[2025-03-26] MEDS: ATORVASTATIN 20 MG TAB PO SCH (21:59)
[2025-03-27 05:00] VITALS: BP 155/88; PULSE 76; RESP 17; TEMP 97.2; O2SAT 96
[2025-03-27 06:14] LABS: Basophils # (auto) 0.1 10 ^3/uL (0-0.2); Basophils % (auto) 0.9 % (0.0-2.0); Eosinophils # (auto) 0.2 10 ^3/uL (0-0.8); Hematocrit 36.4 % (36.0-46.0); Hemoglobin 12.3 g/dL (12.2-16.2); Lymphocytes # (auto) 2.3 10 ^3/uL (0.4-5.4); Lymphocytes % (auto) 36.7 % (10.0-50.0); Mean Corpuscular Hemoglobin 31.3 pg (28.0-32.0); Mean Corpuscular Hgb Conc. 33.9 g/dL (32.0-36.0); Mean Corpuscular Volume 92.6 fL (80.0-100.0); Monocytes # (auto) 0.5 10 ^3/uL (0-1.3); Monocytes % (auto) 8.6 % (0.0-12.0); Neutrophils # (auto) 3.2 10 ^3/uL (1.6-8.6); Neutrophils % (auto) 50.8 % (37.0-80.0); Nucleated Red Blood Cells % 0.1 %; Platelet Count (auto) 296 10^3/uL (140-450); Red Blood Cells 3.93 10^6/uL (4.0-5.20); Red Cell Distribution Width 13.8 % (11.8-14.3); White Blood Cell 6.3 10^3/uL (4.4-10.8)
[2025-03-27 06:29] LABS: Alanine Aminotransferase 22 U/L (7-40); Alkaline Phosphatase 96 U/L (46-116); Anion Gap 8 (5-15); BUN/Creatinine Ratio 23.3 (10.0-20.0); Blood Urea Nitrogen 17 mg/dL (9-23); Calcium 9.7 mg/dL (8.7-10.4); Carbon Dioxide 23 mmol/L (20-31); Potassium 3.9 mmol/L (3.5-5.1); Sodium 142 mmol/L (136-145)
[2025-03-27 06:30] LABS: Albumin 4.2 g/dL (3.2-4.8); Aspartate Aminotransferase 18 U/L (13-40); Chloride 111 mmol/L (98-107); Glucose 170 mg/dL (74-106)
[2025-03-27 06:31] LABS: Bilirubin, Total 0.6 mg/dL (0.2-1.0)
[2025-03-27 09:00] VITALS: BP 117/55; PULSE 85; RESP 20; TEMP 97.5; O2SAT 98
[2025-03-27] MEDS: LOSARTAN POTASSIUM 50 MG TAB PO SCH (09:13)
[2025-03-27] MEDS: FAMOTIDINE 20 MG TAB PO SCH (09:14)
[2025-03-27] MEDS: amLODIPine BESYLATE 5 MG TAB PO SCH (09:14)
[2025-03-27] MEDS: ENOXAPARIN SOD 40 MG/0.4 ML SYRINGE SC SCH (09:15)
[2025-03-27 13:00] VITALS: BP 129/59; PULSE 94; RESP 20; TEMP 98.4; O2SAT 95
[2025-03-27] MEDS ORDERED: FLUC150T38 PO (14:42)
[2025-03-27] MEDS ORDERED: LEVO500T91 PO (14:42)
--- NOTE | 2025-03-27 14:43 | DVHDS2 ---
Discharge Summary Date of Admission March 26, 2025 at 00:09 Date of Discharge: Mar 27, 2025 Labs/Diagnostic Data: Laboratory Results Test 03/27/25 12:04 03/27/25 05:44 03/25/25 22:30 03/25/25 22:20 POC Glucose 210 mg/dl (70-106) White Blood Count 6.3 10^3/uL (4.4-10.8) Red Blood Count 3.93 10^6/uL (4.0-5.20) Hemoglobin 12.3 g/dL (12.2-16.2) Hematocrit 36.4 % (36.0-46.0) Mean Corpuscular Volume 92.6 fL (80.0-100.0) Mean Corpuscular Hemoglobin 31.3 pg (28.0-32.0) Mean Corpuscular Hemoglobin Concent 33.9 g/dL (32.0-36.0) Red Cell Distribution Width 13.8 % (11.8-14.3) Platelet Count 296 10^3/uL (140-450) Mean Platelet Volume 8.1 fL (6.9-10.8) Neutrophils (%) (Auto) 50.8 % (37.0-80.0) Lymphocytes (%) (Auto) 36.7 % (10.0-50.0) Monocytes (%) (Auto) 8.6 % (0.0-12.0) Eosinophils (%) (Auto) 3.0 % (0.0-7.0) Basophils (%) (Auto) 0.9 % (0.0-2.0) Neutrophils # (Auto) 3.2 10 ^3/uL (1.6-8.6) Lymphocytes # (Auto) 2.3 10 ^3/uL (0.4-5.4) Monocytes # (Auto) 0.5 10 ^3/uL (0-1.3) Eosinophils # (Auto) 0.2 10 ^3/uL (0-0.8) Basophils # (Auto) 0.1 10 ^3/uL (0-0.2) Nucleated Red Blood Cells 0.1 % Sodium Level 142 mmol/L (136-145) Potassium Level 3.9 mmol/L (3.5-5.1) Chloride Level 111 mmol/L (98-107) Carbon Dioxide Level 23 mmol/L (20-31) Anion Gap 8 (5-15) Blood Urea Nitrogen 17 mg/dL (9-23) Creatinine 0.73 mg/dL (0.550-1.02) Glomerular Filtration Rate Calc 94 mL/min (>90) BUN/Creatinine Ratio 23.3 (10.0-20.0) Serum Glucose 170 mg/dL (74-106) Calcium Level 9.7 mg/dL (8.7-10.4) Total Bilirubin 0.6 mg/dL (0.2-1.0) Aspartate Amino Transferase (AST) 18 U/L (13-40) Alanine Aminotransferase (ALT) 22 U/L (7-40) Alkaline Phosphatase 96 U/L (46-116) Total Protein 7.0 g/dL (5.7-8.2) Albumin 4.2 g/dL (3.2-4.8) Urine Color Light-yellow (Yellow) Urine Clarity Turbid (Clear) Urine pH 5.5 (5.0-9.0) Urine Specific [place] 1.030 (1.001-1.035) Urine Protein Trace (Negative) Urine Ketones Negative (Negative) Urine Blood Trace /uL (Negative) Urine Nitrite Negative (Negative) Urine Bilirubin Negative (Negative) Urine Urobilinogen Normal mg/dL (Negative) Urine Leukocyte Esterase 3+ /uL (Negative) Urine RBC 27 /hpf (0 - 4) Urine Microscopic WBC 46 /HPF (0-5) Urine Squamous Epithelial Cells Few /hpf (<5) Urine Bacteria Few /hpf (None Seen) Urine Mucus Few (None Seen) Urine Glucose 4+ mg/dL (Normal) Lactic Acid Level 0.8 mmol/L (0.4-2.0) Other Laboratory Tests 03/27/25 05:44 Brief Hx & Hospital Course: 59 y/o female patient presents with dysuria, urinary frequency, and abdominal pain x3 days. Patient was seen at urgent care for same complaint and was prescribed Macrobid. While in the emergency department the patient was evaluated by the provider, As per provider: Labs, vital signs, and imagining monitored. Patient was admitted on March 26, 2025, for UTI. Patient was recently discharged from this facility but was unable to cook pickled meat her prescribed medications from the pharmacy. Patients previous urine culture was sensitive to Levaquin. Patient was restarted on Levaquin and given oral Diflucan for a possible yeast infection. Patient stated her symptoms improved. She was cleared for discharge, antibiotics were sent to her pharmacy, and she stated she would follow up with her PCP in one week. The patient received proper medical treatment and medications. Vital signs, Imaging and Laboratory Work was monitored. All consults recommendations were followed as provided. There were no complaints or new complaints upon discharge, all questions and concerns were answered. Patient was advised to return to the ER or call 911 if any headaches, dizziness, shortness of breath, chest pain, bleeding, fevers, or worsening of medical condition. Patient/Family was counseled about treatment plan, medications, possible side effects, patientverbalized understanding. All questions were answered to the best of my ability. The patient symptoms improved and they are okay to be DC. Condition at Discharge: Good Final Diagnosis/Problems List UTI Acute cystitis DM II with hyperglycemia Morbid obesity HTN with DM II Discharge Disposition: Home Discharge Instruct/Medications Diet: Cardiac 2g Na,low cholest Activity: No Restrictions, As Tolerated Discharge Statement: "Patient was advised to return to the ER or call 911 if any headaches, dizziness, shortness of breath, chest pain, abdominal pain, bleeding, fevers, or worsening of medical condition. Patient was counseled about treatment plan, medications, possible side effects, patientverbalized understanding. All questions were answered to the best of my ability. This discharge took greater then 30 minutes in planning, reviewing documentation, counseling the patient, and discussing with other team members." ASSESSMENT ASSESSMENT Assessment UTI SHEFALI STRATTON NP Mar 27, 2025 14:43
[2025-03-27 15:34] VITALS: BP 117/55; TEMP 36.9
[2025-03-27] MEDS: levoFLOXacin 500 MG TAB PO ONE (16:35)
[2025-03-27 17:00] VITALS: BP 126/63; PULSE 84; RESP 18; TEMP 98; O2SAT 96
== END 2025-03-27 16:53 | disposition home or self-care (01) | DRG 463 ==
LOC: ER 20:44 → OVERFLOW 03-26 00:09 → TELE-WESTW 03-26 04:07
PROVIDERS: ADMIT Internal Medicine; ATTEND Internal Medicine
DX: N30.00 Acute cystitis without hematuria (principal); N17.0 Acute kidney failure with tubular necrosis; E11.65 Type 2 diabetes mellitus with hyperglycemia; E66.01 Morbid (severe) obesity due to excess calories; I10 Essential (primary) hypertension; Z68.36 Body mass index [BMI] 36.0-36.9, adult; Z90.710 Acquired absence of both cervix and uterus; Z86.73 Personal history of transient ischemic attack (TIA), and cerebral infarction without residual deficits; Z85.89 Personal history of malignant neoplasm of other organs and systems; Z83.3 Family history of diabetes mellitus; Z82.49 Family history of ischemic heart disease and other diseases of the circulatory system
CPT/HCPCS: 36415; 80048; 80053; 81001; 82962; 83605; 85025; 87040; 87081; 96365; 96375; 99291; G0378; J0692; J1815; J1956; J2405

== ENCOUNTER 2025-06-02 18:50 | Emergency (ER) | payer MEDICAID ==
[~2025-06-02] VITALS: Ht 165.1 cm; Wt 100.0 kg
[~2025-06-02 18:50] MED LIST changes: +ATOR20TA50 PO; +EMPA1TAB3 PO; +FLUC150T38 PO; +NITR-52 PO
[2025-06-02 18:51] VITALS: BP 136/55; PULSE 86; RESP 16; TEMP 98; O2SAT 92
[2025-06-02] MEDS ORDERED: ACETAMINOPHEN 500 MG TAB or CAP PO ONE (19:00)
--- NOTE | 2025-06-02 19:06 | ED.PDOC ---
History of Present Illness HPI Comments 60-year-old female who came to ER for generalized weakness. Patient has a history of hypertension and diabetes and recurrent urinary tract infections. For the past few hours patient has been feeling weak and dizzy, associated imbalance and near syncopal attacks, especially after standing up from a supine position. Patient also complaining of chest discomfort. Blood sugar on scene was 199 REVIEW OF SYSTEMS: General: No fever, no chills, or fatigue HEENT: No sore throat, no earache, no congestion, no neck pain. Cardiac: (+) chest pain. No palpitations. Lungs: No shortness of breath, no cough. GI: No nausea, no vomiting, no diarrhea, no constipation, no abdominal pain : No dysuria, frequency, or urgency. No hematuria. Musculoskeletal: No joint pain , no joint swelling, no extremity edema. Skin: No rash, no itching. Neuro: No headache, (+) dizziness, (+) weakness PHYSICAL EXAM: General: Awake, alert and oriented. No acute distress. Patient appears fatigued Skin: Skin in warm, dry and intact. Appropriate color for ethnicity. HEENT: The head is normocephalic and atraumatic. Conjunctivae are clear without exudates or hemorrhage. Sclera is non-icteric. EOM are intact. No signs of nystagmus. Eyelids are normal in appearance without swelling or lesions. Oral mucosa is pink and moist Neck: The neck is supple with normal range of motion. No JVD. Cardiac: Heart rate and rhythm are normal. No murmurs, gallops, or rubs are auscultated. Respiratory: No signs of respiratory distress. Lung sounds are clear in all lobes bilaterally without rales, rhonchi, or wheezes. Abdominal: Abdomen is soft, non-tender without distention, guarding or rigidity. Bowel sounds are present and normoactive in all four quadrants. Extremities: 1+ pitting lower extremity edema bilaterally Neurological: The patient is awake, alert and oriented to person, place, and time with normal speech. Speech is clear. There is no facial asymmetry. Psychiatric: Appropriate mood and affect. Good judgement and insight. Chief Complaint: General Weakness Time Seen by MD: 19:06 Primary Care Provider: OSKAR Roman Notes: Nurses Notes Allergies: Coded Allergies: NO KNOWN ALLERGIES (Unverified , 03/16/23) Home Meds Active Scripts Fluconazole (Diflucan) 150 Mg Tab, 1 TAB PO ONCE, #1 TAB 1 Refill Prov:SHEFALI STRATTON HOME THEATER EXPERIENCE EXPERT 03/27/25 Levofloxacin Hemihydrate (LEVAQUIN 500 MG) 500 Mg Tab, 1 TAB PO DAILY, #7 TAB Prov:SHEFALI STRATTON HOME THEATER EXPERIENCE EXPERT 03/27/25 Fluconazole (Diflucan) 150 Mg Tab, 1 TAB PO ONCE, #1 TAB 1 Refill Prov:SHEFALI STRATTON HOME THEATER EXPERIENCE EXPERT 03/27/25 Levofloxacin Hemihydrate (LEVAQUIN 500 MG) 500 Mg Tab, 500 MG PO DAILY for 7 Days, #7 TAB Prov:SHEFALI STRATTON HOME THEATER EXPERIENCE EXPERT 03/27/25 Hydrocodone-Acetaminophen (Hydrocodone Bitartrate/AC 5-325 mg) 1 Tab Tab, 1 TAB PO Q6HR, #10 TAB as needed for pain do not take with baclofen Prov:YONATHAN GONZALEZ Q HOME THEATER EXPERIENCE EXPERT 04/23/24 Acetaminophen (Acetaminophen) 500 Mg Tab, 500 MG PO Q4HPRN, #30 TAB 0 Refills Prov:MATT PARMAR 03/29/24 Reported Medications Empagliflozin (Jardiance) 25 Mg Tab, 25 MG PO, TAB 03/26/25 Atorvastatin Calcium (ATORVASTATIN CALCIUM) 20 Mg Tab, 1 TAB PO DAILY, #30 TAB 5 Refills 03/26/25 Nitrofurantoin (Nitrofurantoin) 100 Mg Cap, 1 CAP PO BID, #10 CAP 03/26/25 Insulin Glargine (Lantus Solostar) 100 Unit/Ml Inj, 15 UNIT SC DAILY 07/04/23 Pxjbqbjoyg-Qcardzuaw-Ottwqmkek (Amlodipine/Valsartan/Hctz 5-160-12.5 mg) 1 Tab Tab, 5-160 PO DAILY 07/04/23 Aspirin (Aspirin Low Dose) 81 Mg Chw, 1 TAB PO DAILY 07/04/23 Information Source: Patient Mode of Arrival: Wheelchair Severity: Moderate Timing: Days Duration: Intermittent Prehospital treatment: None Past Medical History PAST MEDICAL HISTORY: Cancer, CVA, DM, HTN, UTI'S Surgical History: Hysterectomy PRODUCT SAFETY EXPERT History: No Pertinent PRODUCT SAFETY EXPERT History Family History Family History: Reviewed,noncontributory to illness Social History Smoker: Non-Smoker Alcohol: Denies ETOH Use Drugs: Denies Drug Use Lives In: Home Was a procedure done? Was a procedure done?: No Differential Dx Considerations may include: Differential diagnoses considered include but are not limited to sepsis, CVA, ACS, PE, stroke, ICH, adrenal insufficiency, viral syndrome, thyroid storm, myxedema coma , DKA, HHS, hypoglycemia, anemia, GI bleeding, renal failure, dehydration, hepatic failure, electrolyte imbalance, carbon monoxide poisoning, malignancy, UTI, other. X-Ray, Labs, Meds, VS Vital Signs Date Time Temp Pulse Resp B/P (MAP) Pulse Ox O2 Delivery O2 Flow Rate FiO2 06/02/25 18:51 98.0 86 16 136/55 92 98.0 Lab Test 06/02/25 20:40 06/02/25 19:26 Range/Units Troponin I High Sensitivity 4 4 </=34 ng/L White Blood Count 7.9 4.4-10.8 10^3/uL Red Blood Count 4.23 4.0-5.20 10^6/uL Hemoglobin 13.2 12.2-16.2 g/dL Hematocrit 39.1 36.0-46.0 % Mean Corpuscular Volume 92.5 80.0-100.0 fL Mean Corpuscular Hemoglobin 31.3 28.0-32.0 pg Mean Corpuscular Hemoglobin Concent 33.9 32.0-36.0 g/dL Red Cell Distribution Width 13.8 11.8-14.3 % Platelet Count 298 140-450 10^3/uL Mean Platelet Volume 7.8 6.9-10.8 fL Neutrophils (%) (Auto) 64.8 37.0-80.0 % Lymphocytes (%) (Auto) 25.5 10.0-50.0 % Monocytes (%) (Auto) 7.7 0.0-12.0 % Eosinophils (%) (Auto) 1.1 0.0-7.0 % Basophils (%) (Auto) 0.9 0.0-2.0 % Neutrophils # (Auto) 5.1 1.6-8.6 10 ^3/uL Lymphocytes # (Auto) 2.0 0.4-5.4 10 ^3/uL Monocytes # (Auto) 0.6 0-1.3 10 ^3/uL Eosinophils # (Auto) 0.1 0-0.8 10 ^3/uL Basophils # (Auto) 0.1 0-0.2 10 ^3/uL Nucleated Red Blood Cells 0.0 % Sodium Level 144 136-145 mmol/L Potassium Level 3.1 L 3.5-5.1 mmol/L Chloride Level 103 98-107 mmol/L Carbon Dioxide Level 32 H 20-31 mmol/L Anion Gap 9 5-15 Blood Urea Nitrogen 16 9-23 mg/dL Creatinine 0.87 0.550-1.02 mg/dL Glomerular Filtration Rate Calc 75 >90 mL/min BUN/Creatinine Ratio 18.4 10.0-20.0 Serum Glucose 195 H 74-106 mg/dL Lactic Acid Level 2.0 0.4-2.0 mmol/L Calcium Level 9.2 8.7-10.4 mg/dL Magnesium Level 2.2 1.6-2.6 mg/dL B-Type Natriuretic Peptide 26.27 0-100 pg/mL CHEST RADIOGRAPH Indication: cp Technique: Single frontal view of the chest was obtained Comparison: XY CHEST PORTABLE on DOS: 03/06/25, XY CHEST PORTABLE on DOS: 07/02/23, XY CHEST PORTABLE on DOS: 03/16/23 FINDINGS: Lines and Tubes: None Lungs: No focal consolidation. Pleura: No effusion. No pneumothorax. Cardiomediastinal contours: Unremarkable Bones: No acute osseous abnormality. IMPRESSION: 1. No acute cardiopulmonary disease. Time of 1ST Reevaluation: 19:02 Reevaluation 1ST: Unchanged Patient Education/Counseling: Other (Need for admission) Family Education/Counseling: Other (Need for admission) SEPSIS Sepsis Screen Date sepsis recognized/suspect: Jun 02, 2025 Time Sepsis recognized/suspect: 1852 Recent Procedure: No On Antibiotic Therapy: No Respiratory Rate >20: No Heart Rate >90: No Temp<36 C (96.8 F) or >38.3 C: No SBP <90 or MAP <65 mmHG: No New Acute Mental Status Change: No Is the patient on CPAP, BIPAP,: No Physician Orders Urinalysis (06/02/25 18:58) Chest Xray 1 View (06/02/25 18:58) Electrocardigram (06/02/25 18:58) Electrocardigram (06/02/25 19:58) Electrocardigram (06/02/25 21:58) Vital Signs Date Time Temp Pulse Resp B/P (MAP) Pulse Ox O2 Delivery O2 Flow Rate FiO2 06/02/25 18:51 98.0 86 16 136/55 92 98.0 Laboratory Tests Test 06/02/25 19:26 Lactic Acid Level 2.0 mmol/L (0.4-2.0) White Blood Count 7.9 10^3/uL (4.4-10.8) Departure 1 Departure Time of Disposition: 22:33 Impression: Primary Impression: Left against medical advice Additional Impression: Fatigue Disposition: 07 LEFT AGAINST MEDICAL ADVICE Condition: Other Comments MDM: Despite our efforts, patient has decided to leave against medical advice. The patient has a normal mental status and full decisional capacity. Patient has been informed of the benefits of staying such as further diagnosis and treatment of possible serious etiology of the symptoms, and the risks of leaving such as , chronic pain, permanent disability or other serious adverse events which might be attributed to leaving. The patient displays clear understanding of these benefits and risks and chooses to leave. The patient is been informed also that they may return here at any time if they change their mind or need to further concerns or questions has been referred to their local medical physician for follow up AYSE. Critical Care Note Critical Care Time?: No Stability Stability form required: No Heart Score Heart Score: Heart Score Response (Comments) Value History Slightly Suspicious 0 EKG Normal 0 Age 45-64 1 Risk Factors >3 or Hx ASHD 2 Troponin Normal limit 0 Total 3 I personally scribed for YON NUR MD ([email or web address]) on 06/02/25 at 19:06. Electronically submitted by Juan Olson ([email or web address]). I personally scribed for YON NUR MD ([email or web address]) on 06/02/25 at 19:11. Electronically submitted by Juan Olson ([email or web address]). I personally scribed for YON NUR MD ([email or web address]) on 06/02/25 at 19:59. Electronically submitted by Juan Olson ([facility]). YON NUR MD Jun 02, 2025 19:06
--- NOTE | 2025-06-02 19:30 | DVH ---
CHEST RADIOGRAPH Indication: cp Technique: Single frontal view of the chest was obtained Comparison: XY CHEST PORTABLE on DOS: 03/06/25, XY CHEST PORTABLE on DOS: 07/02/23, XY CHEST PORTABLE on DOS: 03/16/23 FINDINGS: Lines and Tubes: None Lungs: No focal consolidation. Pleura: No effusion. No pneumothorax. Cardiomediastinal contours: Unremarkable Bones: No acute osseous abnormality. IMPRESSION: 1. No acute cardiopulmonary disease.
[2025-06-02 19:42] LABS: Hematocrit 39.1 % (36.0-46.0); Hemoglobin 13.2 g/dL (12.2-16.2); Mean Corpuscular Hemoglobin 31.3 pg (28.0-32.0); Mean Corpuscular Volume 92.5 fL (80.0-100.0); Nucleated Red Blood Cells % 0.0 %
[2025-06-02 19:47] LABS: Chloride 103 mmol/L (98-107); Sodium 144 mmol/L (136-145)
[2025-06-02 19:48] LABS: Anion Gap 9 (5-15); Calcium 9.2 mg/dL (8.7-10.4)
[2025-06-02 19:53] LABS: BUN/Creatinine Ratio 18.4 (10.0-20.0); Blood Urea Nitrogen 16 mg/dL (9-23)
[2025-06-02 19:54] LABS: Magnesium 2.2 mg/dL (1.6-2.6)
[2025-06-02 20:00] LABS: Carbon Dioxide 32 mmol/L (20-31); Glucose 195 mg/dL (74-106); Potassium 3.1 mmol/L (3.5-5.1)
== END 2025-06-02 21:38 | disposition left against medical advice (07) ==
LOC: ER 18:50
DX: R53.1 Weakness (principal); R53.83 Other fatigue; I10 Essential (primary) hypertension; E11.9 Type 2 diabetes mellitus without complications; Z79.82 Long term (current) use of aspirin; Z79.899 Other long term (current) drug therapy; Z86.73 Personal history of transient ischemic attack (TIA), and cerebral infarction without residual deficits; Z87.440 Personal history of urinary (tract) infections; Z90.710 Acquired absence of both cervix and uterus
CPT/HCPCS: 36415; 71045; 80048; 83605; 83735; 83880; 84484; 85025

== ENCOUNTER 2025-06-03 18:31 | Inpatient (IN) | payer MEDICAID ==
[~2025-06-03] VITALS: Ht 165.1 cm; Wt 99.2 kg
--- NOTE | 2025-06-03 21:21 | ED.PDOC ---
History of Present Illness HPI Comments 60-year-old female with a history of hypertension, diabetes, dyslipidemia, email marketer cancer in remission, brought in by private car for evaluation of dizziness, occipital headache, general weakness and heaviness in her extremities, associated with nausea, chest discomfort and lower abdominal discomfort for the last 2-3 days. She denies fever, cough, shortness of breath, vomiting, diarrhea, constipation or dysuria. Patient was seen here yesterday for the same complaint, however left because she did not want to wait. Chief Complaint: Dizziness Time Seen by MD: 21:21 Primary Care Provider: OSKAR Reviewed Notes: Nurses Notes Allergies: Coded Allergies: NO KNOWN ALLERGIES (Unverified , 03/16/23) Home Meds Active Scripts Fluconazole (Diflucan) 150 Mg Tab, 1 TAB PO ONCE, #1 TAB 1 Refill Prov:SHEFALI STRATTON CONSTRUCTION EQUIPMENT MECHANIC 03/27/25 Levofloxacin Hemihydrate (LEVAQUIN 500 MG) 500 Mg Tab, 1 TAB PO DAILY, #7 TAB Prov:SHEFALI STRATTON NP 03/27/25 Fluconazole (Diflucan) 150 Mg Tab, 1 TAB PO ONCE, #1 TAB 1 Refill Prov:SHEFALI STRATTON NP 03/27/25 Levofloxacin Hemihydrate (LEVAQUIN 500 MG) 500 Mg Tab, 500 MG PO DAILY for 7 Days, #7 TAB Prov:SHEFALI STRATTON NP 03/27/25 Hydrocodone-Acetaminophen (Hydrocodone Bitartrate/AC 5-325 mg) 1 Tab Tab, 1 TAB PO Q6HR, #10 TAB as needed for pain do not take with baclofen Prov:YONATHAN GONZALEZ CONSTRUCTION EQUIPMENT MECHANIC 04/23/24 Acetaminophen (Acetaminophen) 500 Mg Tab, 500 MG PO Q4HPRN, #30 TAB 0 Refills Prov:MATT PARMAR 03/29/24 Reported Medications Empagliflozin (Jardiance) 25 Mg Tab, 25 MG PO, TAB 03/26/25 Atorvastatin Calcium (ATORVASTATIN CALCIUM) 20 Mg Tab, 1 TAB PO DAILY, #30 TAB 5 Refills 03/26/25 Nitrofurantoin (Nitrofurantoin) 100 Mg Cap, 1 CAP PO BID, #10 CAP 03/26/25 Insulin Glargine (Lantus Solostar) 100 Unit/Ml Inj, 15 UNIT SC DAILY 07/04/23 Sfgnzxhfkd-Qdsrojawq-Megofcaua (Amlodipine/Valsartan/Hctz 5-160-12.5 mg) 1 Tab Tab, 5-160 PO DAILY 07/04/23 Aspirin (Aspirin Low Dose) 81 Mg Chw, 1 TAB PO DAILY 07/04/23 Information Source: Patient Mode of Arrival: Ambulatory Severity: Moderate Timing: Days Duration: Intermittent Past Medical History PAST MEDICAL HISTORY: Cancer, CVA, DM, High Lipids, HTN, UTI'S Surgical History: Hysterectomy ACCOUNTING SYSTEMS ANALYST History: No Pertinent ACCOUNTING SYSTEMS ANALYST History Family History Family History: Reviewed,noncontributory to illness Social History Smoker: Non-Smoker Alcohol: Denies ETOH Use Drugs: Denies Drug Use Lives In: Home Constitutional: denies: chills, diaphoresis, fatigue, fever, malaise, sweats, weakness, others EENTM: denies: blurred vision, double vision, ear bleeding, ear discharge, ear drainage, ear pain, ear ringing, eye pain, eye redness, hearing loss, mouth pain, mouth swelling, nasal discharge, nose bleeding, nose congestion, nose pain, photophobia, tearing, throat pain, throat swelling, voice changes, others Respiratory: denies: cough, hemoptysis, orthopnea, SOB at rest, shortness of breath, SOB with excertion, stridor, wheezing, others Cardiovascular: denies: chest pain, dizzy spells, diaphoresis, Dyspnea on exertion, edema, irregular heart beat, left arm pain, lightheadedness, palpitations, PND, syncope, others Gastrointestinal: reports: nausea; denies: abdomen distended, abdominal pain, blood streaked bowels, constipated, diarrhea, dysphagia, difficulty swallowing, hematemesis, melena, poor appetite, poor fluid intake, rectal bleeding, rectal pain, vomiting, others Genitourinary: denies: abnormal vagina bleeding, burning, dyspareunia, dysuria, flank pain, frequency, hematuria, incontinence, pain, , vagina discharge, urgency, others Neurological: reports: dizziness, headache, weakness; denies: fainting, left sided numbness, left sided weakness, numbness, paresthesia, pre-existing deficit, right sided numbness, right sided weakness, seizure, speech problems, tingling, tremors, others Musculoskeletal: denies: back pain, gout, joint pain, joint swelling, muscle pain, muscle stiffness, neck pain, others Integumetry: denies: bruises, change in color, change in hair/nails, dryness, laceration, lesions, lumps, rash, wounds, others Allergic/Immunocompromised: denies: Difficulty Healing, Frequent Infections, Hives, Itching, others Hematologic/Lymphatic: denies: anemia, blood clots, easy bleeding, easy bruising, swollen glands, others Endocrine: denies: excessive hunger, excessive sweating, excessive thirst, excessive urination, flushing, intolerance to cold, intolerance to heat, unexplained weight gain, unexplained weight loss, others Psychiatric: denies: anxiety, bipolar disorder, depression, hopeless, panic disorder, schizophrenia, sleepless, suicidal, others Physical Exam General Appearance: No Apparent Distress, Obese HEENT: Other (Pupils and face symmetric. Moist mucous membranes.) Neck: Full Range of Motion, Non-Tender, Normal Inspection, Supple Respiratory: Decreased Breath Sounds, No Accessory Muscle Use, No Respiratory Distress Cardiovascular: No Edema, No JVD, Regular Rate/Rhythm Breast Exam: Deferred Gastrointestinal: Non Tender, Soft Genitalia: Deferred Pelvic: Deferred Rectal: Deferred Extremities: Normal inspection, Normal range of motion, Non-tender, No pedal edema Neurologic: Alert (Oriented x4), Normal Affect, Normal Mood, Other (Ambulatory with walker. No gross focal deficit.) Cerebellar Function: NOT DONE Reflexes: NOT DONE Skin: Dry, Normal Color, Warm Lymphatic: NOT DONE Was a procedure done? Was a procedure done?: No EKG EKG : Comments Sinus rhythm, rate 89, normal intervals, normal axis, normal QRS, nonspecific T changes. Differential Dx Considerations may include: CVA, TIA, arrhythmia, MS, infection such as UTI, Electrolyte imbalance, hyper or hypoglycemia, among others X-Ray, Labs, Meds, VS Vital Signs Date Time Temp Pulse Resp B/P (MAP) Pulse Ox O2 Delivery O2 Flow Rate FiO2 06/03/25 22:43 98.1 89 16 130/72 (91) 96 98.1 06/03/25 22:43 89 16 96 Room Air 06/03/25 21:43 97.8 88 16 134/65 (88) 95 97.8 06/03/25 18:43 89 06/03/25 18:33 98.2 90 16 145/64 92 98.2 Lab Test 8/8/25 21:57 06/03/25 21:34 Range/Units Urine Color Colorless Yellow Urine Clarity Turbid H Clear Urine pH 6.5 5.0-9.0 Urine Specific Breeding 1.032 1.001-1.035 Urine Protein Negative Negative Urine Ketones Negative Negative Urine Blood Negative Negative /uL Urine Nitrite Negative Negative Urine Bilirubin Negative Negative Urine Urobilinogen Normal Negative mg/dL Urine Leukocyte Esterase 2+ Negative /uL Urine Glucose +4 Normal mg/dL White Blood Count 8.5 4.4-10.8 10^3/uL Red Blood Count 4.41 4.0-5.20 10^6/uL Hemoglobin 13.8 12.2-16.2 g/dL Hematocrit 41.4 36.0-46.0 % Mean Corpuscular Volume 93.9 80.0-100.0 fL Mean Corpuscular Hemoglobin 31.3 28.0-32.0 pg Mean Corpuscular Hemoglobin Concent 33.3 32.0-36.0 g/dL Red Cell Distribution Width 13.9 11.8-14.3 % Platelet Count 319 140-450 10^3/uL Mean Platelet Volume 8.3 6.9-10.8 fL Neutrophils (%) (Auto) 46.2 37.0-80.0 % Lymphocytes (%) (Auto) 42.6 10.0-50.0 % Monocytes (%) (Auto) 8.3 0.0-12.0 % Eosinophils (%) (Auto) 2.1 0.0-7.0 % Basophils (%) (Auto) 0.8 0.0-2.0 % Neutrophils # (Auto) 4.0 1.6-8.6 10 ^3/uL Lymphocytes # (Auto) 3.6 0.4-5.4 10 ^3/uL Monocytes # (Auto) 0.7 0-1.3 10 ^3/uL Eosinophils # (Auto) 0.2 0-0.8 10 ^3/uL Basophils # (Auto) 0.1 0-0.2 10 ^3/uL Nucleated Red Blood Cells 0.1 % Sodium Level 144 136-145 mmol/L Potassium Level 3.0 L 3.5-5.1 mmol/L Chloride Level 101 98-107 mmol/L Carbon Dioxide Level 33 H 20-31 mmol/L Anion Gap 10 5-15 Blood Urea Nitrogen 13 9-23 mg/dL Creatinine 0.89 0.550-1.02 mg/dL Glomerular Filtration Rate Calc 73 >90 mL/min BUN/Creatinine Ratio 14.6 10.0-20.0 Serum Glucose 140 H 74-106 mg/dL Calcium Level 9.6 8.7-10.4 mg/dL Troponin I High Sensitivity < 3 L </=34 ng/L B-Type Natriuretic Peptide 28.27 0-100 pg/mL Current Medications Medications (Trade) Dose Ordered Sig/Richardson Route Start Time Stop Time Status Last Admin Acetaminophen (Tylenol Tablet Or Capsule) 1,000 mg ONCE ONCE PO 06/03/25 21:45 06/03/25 21:46 DC 06/03/25 22:38 Ondansetron HCl (Zofran) 4 mg ONCE ONCE IV 06/03/25 21:45 06/03/25 21:46 DC 06/03/25 22:35 Sodium Chloride 1,000 ml @ 1,000 mls/hr Q1H ONCE IV 06/03/25 21:45 06/03/25 22:44 DC 06/03/25 22:41 PROCEDURE(s): HWOCT - HEAD WITHOUT CONTRAST REASON: gen weak, dizzy ORDER NUMBER(s): [id number], ACCESSION NUMBER(s): [id number] COMPUTERIZED TOMOGRAPHY OF THE HEAD WITHOUT CONTRAST REASON FOR STUDY: gen weak, dizzy COMPARISON: MRI BRAIN HEAD WO CONTRAST on DOS: 03/07/25, CT HEAD WITHOUT CONTRAST on DOS: 03/06/25, MRI BRAIN HEAD WO CONTRAST on DOS: 07/03/23, CT ANGIO HEAD/NECK on DOS: 07/03/23, CT HEAD WITHOUT CONTRAST on DOS: 07/02/23 TECHNIQUE: Helical tomographic scans were obtained through the brain. 2-D coronal and sagittal reformatted images are provided. Radiation optimization: All CT scans at this facility use at least one of these dose optimization techniques: Automated exposure control mA and/or kV adjustment per patient size (includes targeted exams where dose is matched to clinical indication) or iterative reconstruction. RADIATION DOSE: CTDI: 56 mGy DLP: 994 mGy-cm FINDINGS: No suspicious intracranial hyperdensity to suggest acute blood. There is no mass effect nor midline shift. There is mild generalized volume loss with compensatory enlargement of the CSF spaces. There is no hydrocephalus. The suprasellar cistern is intact. There are scattered periventricular and deep white matter hypodensities that are most consistent with chronic microangiopathic changes. The calvarium is intact. The visualized mastoid air cells and paranasal sinuses are clear. IMPRESSION: No acute intracranial abnormality. Mild generalized volume loss with chronic small vessel ischemic change. EDURE(s): CXRP - CHEST PORTABLE REASON: gen weak, dizzy, cp ORDER NUMBER(s): [id number], ACCESSION NUMBER(s): [id number] CHEST RADIOGRAPH Indication: gen weak, dizzy, cp Technique: Single frontal view of the chest was obtained COMPARISON: XY CHEST XRAY 1 VIEW on DOS: 06/02/25, XY CHEST PORTABLE on DOS: 03/06/25, XY CHEST PORTABLE on DOS: 07/02/23, XY CHEST PORTABLE on DOS: 03/16/23 FINDINGS: Lines and Tubes: None Lungs: Clear Pleura: No effusion. No pneumothorax. Cardiomediastinal contours: Unremarkable Bones: Unremarkable. Old healed left clavicle fracture. IMPRESSION: 1. No acute disease. X-Ray, Labs, Meds, VS Comment 60-year-old female with a history of hypertension, diabetes and dyslipidemia complaining of dizziness, occipital headache and generalized weakness associated with nausea, chest discomfort and lower abdominal discomfort Vitals remarkable for blood pressure 145/64, oxygen saturation 92% on room air which is hypoxic Exam remarkable for diminished lung sounds Rhythm strip independently interpreted by me: Sinus rhythm, rate 89, no ectopy. CT head nothing acute Chest x-ray unremarkable CBC unremarkable, basic metabolic panel remarkable for potassium 3, BNP normal, troponin negative, UA abnormal consistent with UTI Patient treated with the following in the ED: 1 L 0.9 normal saline IV bolus, Tylenol 1 g p.o., Zofran 4 mg IV, potassium effervescent 50 mEq p.o., Rocephin 1 g IV On re-evaluation, there have been no new neurologic changes. Patient states symptoms have improved. Vitals were stable. Plan is to admit the patient for IV antibiotics and electrolyte correction Time of Reevaluation: 21:20 Reevaluation 1ST: Unchanged Patient Education/Counseling: Diagnosis, Treatment Family Education/Counseling: No Family Present SEPSIS Sepsis Screen Date sepsis recognized/suspect: Jun 03, 2025 Time Sepsis recognized/suspect: 1839 Recent Procedure: No On Antibiotic Therapy: No Respiratory Rate >20: No Heart Rate >90: No Temp<36 C (96.8 F) or >38.3 C: No SBP <90 or MAP <65 mmHG: No New Acute Mental Status Change: No Is the patient on CPAP, BIPAP,: No Physician Orders Electrocardigram (06/03/25 18:34) Chest Portable (06/03/25 21:22) Head Without Contrast (06/03/25 21:22) Troponin-I Hs (06/03/25 22:22) Troponin-I Hs (06/04/25 00:22) Vital Signs Date Time Temp Pulse Resp B/P (MAP) Pulse Ox O2 Delivery O2 Flow Rate FiO2 06/03/25 22:43 98.1 89 16 130/72 (91) 96 98.1 06/03/25 22:43 89 16 96 Room Air 06/03/25 21:43 97.8 88 16 134/65 (88) 95 97.8 06/03/25 18:43 89 06/03/25 18:33 98.2 90 16 145/64 92 98.2 Laboratory Tests Test 06/03/25 21:34 White Blood Count 8.5 10^3/uL (4.4-10.8) Medications Medications Dose Ordered Sig/Richardson Route Start Time Stop Time Status Last Admin Dose Admin Acetaminophen 1,000 mg ONCE ONCE PO 06/03/25 21:45 06/03/25 21:46 DC 06/03/25 22:38 Ondansetron HCl 4 mg ONCE ONCE IV 06/03/25 21:45 06/03/25 21:46 DC 06/03/25 22:35 Sodium Chloride 1,000 ml @ 1,000 mls/hr Q1H ONCE IV 06/03/25 21:45 06/03/25 22:44 DC 06/03/25 22:41 Departure 1 Departure Time of Disposition: 23:06 Impression: Primary Impression: UTI (urinary tract infection) Additional Impression: Hypokalemia Disposition: ADMITTED INPATIENT Admit to: Med Surg Condition: Guarded Critical Care Note Critical Care Time?: No Stability Stability form required: No Heart Score Heart Score: Heart Score Response (Comments) Value History N/A 0 EKG N/A 0 Age N/A 0 Risk Factors N/A 0 Troponin N/A 0 Total 0 I personally scribed for CLEVELAND PUCKETT MD ([email or web address]) on 06/03/25 at 21:21. Electronically submitted by Juan Olson ([facility]). CLEVELAND PUCKETT MD Jun 03, 2025 21:21
[2025-06-03 22:25] LABS: Hematocrit 41.4 % (36.0-46.0); Hemoglobin 13.8 g/dL (12.2-16.2); Mean Corpuscular Hemoglobin 31.3 pg (28.0-32.0); Mean Corpuscular Volume 93.9 fL (80.0-100.0); Nucleated Red Blood Cells % 0.1 %
[2025-06-03 22:32] LABS: Chloride 101 mmol/L (98-107); Sodium 144 mmol/L (136-145)
[2025-06-03 22:33] LABS: Anion Gap 10 (5-15)
[2025-06-03 22:34] LABS: Calcium 9.6 mg/dL (8.7-10.4)
[2025-06-03 22:35] LABS: Carbon Dioxide 33 mmol/L (20-31); Potassium 3.0 mmol/L (3.5-5.1)
[2025-06-03] MEDS: ONDANSETRON HCL 4 MG/2 ML VIAL IV ONE (22:35)
--- NOTE | 2025-06-03 22:35 | DVH ---
COMPUTERIZED TOMOGRAPHY OF THE HEAD WITHOUT CONTRAST REASON FOR STUDY: gen weak, dizzy COMPARISON: MRI BRAIN HEAD WO CONTRAST on DOS: 03/07/25, CT HEAD WITHOUT CONTRAST on DOS: 03/06/25, MRI BRAIN HEAD WO CONTRAST on DOS: 07/03/23, CT ANGIO HEAD/NECK on DOS: 07/03/23, CT HEAD WITHOUT CONTRAST o n DOS: 07/02/23 TECHNIQUE: Helical tomographic scans were obtained through the brain. 2-D coronal and sagittal refor matted images are provided. Radiation optimization: All CT scans at this facility use at least one of these dose optimization techniques: Automated exposure control mA and/or kV adjustment per patient s ize (includes targeted exams where dose is matched to clinical indication) or iterative reconstructio n. RADIATION DOSE: CTDI: 56 mGy DLP: 994 mGy-cm FINDINGS: No suspicious intracranial hyperdensity to suggest acute blood. There is no mass effect n or midline shift. There is mild generalized volume loss with compensatory enlargement of the CSF spac es. There is no hydrocephalus. The suprasellar cistern is intact. There are scattered periventricular and deep white matter hypodensities that are most consistent with chronic microangiopathic changes. The calvarium is intact. The visualized mastoid air cells and paranasal sinuses are clear. IMPRESSION: No acute intracranial abnormality. Mild generalized volume loss with chronic small vessel ischemic change.
--- NOTE | 2025-06-03 22:35 | DVH ---
CHEST RADIOGRAPH Indication: gen weak, dizzy, cp Technique: Single frontal view of the chest was obtained COMPARISON: XY CHEST XRAY 1 VIEW on DOS: 06/02/25, XY CHEST PORTABLE on DOS: 03/06/25, XY CHEST PORTABLE on DOS: 07/02/23, XY CHEST PORTABLE on DOS: 03/16/23 FINDINGS: Lines and Tubes: None Lungs: Clear Pleura: No effusion. No pneumothorax. Cardiomediastinal contours: Unremarkable Bones: Unremarkable. Old healed left clavicle fracture. IMPRESSION: 1. No acute disease.
[2025-06-03] MEDS: ACETAMINOPHEN 500 MG TAB or CAP PO ONE (22:38)
[2025-06-03 22:39] LABS: BUN/Creatinine Ratio 14.6 (10.0-20.0); Blood Urea Nitrogen 13 mg/dL (9-23); Glucose 140 mg/dL (74-106)
[2025-06-03] MEDS: SODIUM CHLORIDE 0.9% 1,000 ML IV ONE (22:41)
[2025-06-03 22:43] LABS: Urine Protein, UAD Negative (Negative)
[2025-06-03] MEDS: POTASSIUM EFFERVESENT TAB 25 MEQ PO ONE (23:39)
[2025-06-03] MEDS: cefTRIAXone 1GM/50ML D5W 50 ML IV ONE (23:40)
--- NOTE | 2025-06-04 00:43 | DVHHPRES ---
History of Present Illness Resident Creating Document: KARINA COX RESIDENT History of Present Illness 60 year old female with morbid obesity presents to the ER with 1 episode of dizziness this morning, patient felt like the world is spinning around slowly. After the episode she was not confused. She has a history of low back pain for which she has done an MRI, but presently the patient does not remember findings. Following the episode the patient was not able to use bathroom on her own because of weakness. She does not have any chest pain, shortness of breath, fev er or any other complaints today. Past medical history: Diabetes mellitus, hypertension Past surgical history: Never Home medications: Insulin, ykdgugnzxu-kfbcktjtk-zczgvkpzfjtvravesga Smoking history: None Drugs: None Alcohol: None No known allergies PCP: Dr. Darnell Sr Family history: Noncontributory Code status: Full code Review of Systems Musculoskeletal: back pain Neurological: Other Other Dizziness Allergies: Coded Allergies: NO KNOWN ALLERGIES (Unverified , 03/16/23) Medications Current Medications Medications Dose Ordered Sig/Richardson Route Start Time Stop Time Status Last Admin Dose Admin Sodium Chloride 1,000 ml @ 60 mls/hr [id number] IV 06/04/25 00:45 Exam Vital Signs Vital Signs Date Time Temp Pulse Resp B/P (MAP) Pulse Ox O2 Delivery O2 Flow Rate FiO2 06/03/25 22:43 98.1 89 16 130/72 (91) 96 98.1 06/03/25 22:43 Room Air Exam Pt is lying on bed General Appearance: Morbid obesity, Alert, Oriented X3, Cooperative, Mild distress HEENT: Atraumatic, Mucous membranes moist/pink Respiratory: Clear to auscultation, Normal air movement, No added sounds Cardiovascular: Regular rate, Normal S1, Normal S2, No murmurs Abdominal/ : Active bowel sounds, Soft, no distention, no tenderness Extremities: No edema, Normal pulses, No tenderness/swelling Skin: No Significant rash, except past surgical scars Neuro: Normal speech, sensorimotor deficits none Psych/Mental Status: Mental status NL, Mood NL Nurse was there as mailhouse operator during examination Labs/Xrays Labs Test 06/03/25 22:57 06/03/25 21:57 06/03/25 21:34 Range/Units Troponin I High Sensitivity 5 </=34 ng/L Urine Color Colorless Yellow Urine Clarity Turbid H Clear Urine pH 6.5 5.0-9.0 Urine Specific Jerome 1.032 1.001-1.035 Urine Protein Negative Negative Urine Ketones Negative Negative Urine Blood Negative Negative /uL Urine Nitrite Negative Negative Urine Bilirubin Negative Negative Urine Urobilinogen Normal Negative mg/dL Urine Leukocyte Esterase 2+ Negative /uL Urine Glucose +4 Normal mg/dL White Blood Count 8.5 4.4-10.8 10^3/uL Red Blood Count 4.41 4.0-5.20 10^6/uL Hemoglobin 13.8 12.2-16.2 g/dL Hematocrit 41.4 36.0-46.0 % Mean Corpuscular Volume 93.9 80.0-100.0 fL Mean Corpuscular Hemoglobin 31.3 28.0-32.0 pg Mean Corpuscular Hemoglobin Concent 33.3 32.0-36.0 g/dL Red Cell Distribution Width 13.9 11.8-14.3 % Platelet Count 319 140-450 10^3/uL Mean Platelet Volume 8.3 6.9-10.8 fL Neutrophils (%) (Auto) 46.2 37.0-80.0 % Lymphocytes (%) (Auto) 42.6 10.0-50.0 % Monocytes (%) (Auto) 8.3 0.0-12.0 % Eosinophils (%) (Auto) 2.1 0.0-7.0 % Basophils (%) (Auto) 0.8 0.0-2.0 % Neutrophils # (Auto) 4.0 1.6-8.6 10 ^3/uL Lymphocytes # (Auto) 3.6 0.4-5.4 10 ^3/uL Monocytes # (Auto) 0.7 0-1.3 10 ^3/uL Eosinophils # (Auto) 0.2 0-0.8 10 ^3/uL Basophils # (Auto) 0.1 0-0.2 10 ^3/uL Nucleated Red Blood Cells 0.1 % Sodium Level 144 136-145 mmol/L Potassium Level 3.0 L 3.5-5.1 mmol/L Chloride Level 101 98-107 mmol/L Carbon Dioxide Level 33 H 20-31 mmol/L Anion Gap 10 5-15 Blood Urea Nitrogen 13 9-23 mg/dL Creatinine 0.89 0.550-1.02 mg/dL Glomerular Filtration Rate Calc 73 >90 mL/min BUN/Creatinine Ratio 14.6 10.0-20.0 Serum Glucose 140 H 74-106 mg/dL Calcium Level 9.6 8.7-10.4 mg/dL B-Type Natriuretic Peptide 28.27 0-100 pg/mL SEPSIS Sepsis Screen Date sepsis recognized/suspect: Jun 03, 2025 Time Sepsis recognized/suspect: 1839 Recent Procedure: No On Antibiotic Therapy: No Respiratory Rate >20: No Heart Rate >90: No Temp<36 C (96.8 F) or >38.3 C: No SBP <90 or MAP <65 mmHG: No New Acute Mental Status Change: No Is the patient on CPAP, BIPAP,: No Physician Orders Electrocardigram (06/03/25 18:34) Chest Portable (06/03/25 21:22) Head Without Contrast (06/03/25 21:22) Admit (06/04/25 00:32) Allergies (06/04/25 00:32) Code Status (06/04/25 00:32) Sodium Chloride 0.9% (06/04/25 00:45) Complete Blood Count (06/05/25 04:00) Comprehensive Metabolic Panel (06/05/25 04:00) Cardiac Diet-2gna,Lofat,Lochol (06/04/25 Breakfast) Oxygen By Nasal Cannula (06/04/25 00:32) Stat Ekg For Chest Pain (06/04/25 00:32) Notify Md Of Changes From Base (06/04/25 00:32) Rn Managed Care For 24 Hours (06/04/25 00:32) Emergency Dysrhythmia Protocol (06/04/25 00:32) Vital Signs Date Time Temp Pulse Resp B/P (MAP) Pulse Ox O2 Delivery O2 Flow Rate FiO2 06/03/25 22:43 98.1 89 16 130/72 (91) 96 98.1 06/03/25 22:43 89 16 96 Room Air 06/03/25 21:43 97.8 88 16 134/65 (88) 95 97.8 06/03/25 18:43 89 06/03/25 18:33 98.2 90 16 145/64 92 98.2 Laboratory Tests Test 06/03/25 21:34 White Blood Count 8.5 10^3/uL (4.4-10.8) Medications Medications Dose Ordered Sig/Richardson Route Start Time Stop Time Status Last Admin Dose Admin Acetaminophen 1,000 mg ONCE ONCE PO 06/03/25 21:45 06/03/25 21:46 DC 06/03/25 22:38 1,000 MG Ceftriaxone Sodium 50 ml @ 100 mls/hr ONCE ONCE IV 06/03/25 23:15 06/03/25 23:44 DC 06/03/25 23:40 100 MLS/HR Ondansetron HCl 4 mg ONCE ONCE IV 06/03/25 21:45 06/03/25 21:46 DC 06/03/25 22:35 4 MG Potassium Bicarbonate 50 meq ONCE ONCE PO 06/03/25 23:15 06/03/25 23:16 DC 06/03/25 23:39 50 MEQ Sodium Chloride 1,000 ml @ 1,000 mls/hr Q1H ONCE IV 06/03/25 21:45 06/03/25 22:44 DC 06/03/25 22:41 1,000 MLS/HR Assessment/Plan Assessment/Plan Dizziness due to hypovolemia/TIA/BPPV -CT head: No acute intracranial abnormality.Mild generalized volume loss with chronic small vessel ischemic change. -chest x-ray: No acute disease -BNP 28 -Orthostatic vitals -IV fluids given -perform Sondra-Hallpike maneuver Hypokalemia: Repleted Diabetes mellitus Insulin sliding scale Morbid obesity Patient was counseled on healthy lifestyle modifications GI prophylaxis: Pantoprazole DVT prophylaxis: Not indicated Diet: Cardiac Goals of care discussed with the patient for more than 27 minutes: Full code status Case discussed with Dr. Mukherjee, patient and RN Plan discussed with: Patient, Other (RN) My Orders Orders - KARINA COX RESIDENT Procedure Category Date Status Time Admit ADMIT 06/04/25 Transmitted 00:32 Allergies JANNET 06/04/25 In Process 00:32 Code Status CODE 06/04/25 Transmitted 00:32 Sodium Chloride 0.9% PHA 06/04/25 In Process 00:45 Complete Blood Count LAB 06/05/25 Verified 04:00 Comprehensive LAB 06/05/25 Verified Metabolic Panel 04:00 Cardiac DIET 06/04/25 Transmitted Diet-2gna,Lofat,Lochol Breakfast Oxygen By Nasal RT 06/04/25 Transmitted Cannula 00:32 Stat Ekg For Chest JANNET 06/04/25 In Process Pain 00:32 Notify Md Of Changes [facility] 06/04/25 In Process From Base 00:32 Rn Managed Care For [facility] 06/04/25 In Process 24 Hours 00:32 Emergency Dysrhythmia [facility] 06/04/25 In Process Protocol 00:32 Date of Service: Jun 04, 2025 Billing Provider: TORITO MUKHERJEE MD Common Visit Codes: 19283-AABFGLI INP/OBS CARE (HIGH) Secondary Visit Codes: 60408-[id number] CARE PLAN 30 MINUTES KARINA COX Jun 04, 2025 00:43
[2025-06-04] MEDS: SODIUM CHLORIDE 0.9% 1,000 ML IV SCH (02:22)
[2025-06-04 04:55] VITALS: PULSE 78; RESP 16; O2SAT 94
[2025-06-04] MEDS ORDERED: DEXTROSE (50%) 50ML SYRG IV PRN (07:00)
[2025-06-04 07:45] VITALS: PULSE 83; RESP 14; O2SAT 93
[2025-06-04 10:05] LABS: Chloride 103 mmol/L (98-107); Potassium 4.0 mmol/L (3.5-5.1); Sodium 143 mmol/L (136-145)
[2025-06-04 10:06] LABS: Anion Gap 13 (5-15); Carbon Dioxide 27 mmol/L (20-31)
[2025-06-04 10:07] LABS: Calcium 9.5 mg/dL (8.7-10.4)
[2025-06-04 10:11] LABS: BUN/Creatinine Ratio 12.7 (10.0-20.0); Blood Urea Nitrogen 9 mg/dL (9-23)
[2025-06-04 10:12] LABS: Glucose 157 mg/dL (74-106)
[2025-06-04] MEDS: PANTOPRAZOLE 40 MG/10 ML VIAL INJ IV SCH (10:48)
[2025-06-04] MEDS: InsuLIN REG 1unit/0.01ml Soln (100units/ml) SC SCH (12:17)
[2025-06-04] MEDS: ACCU-CHEK COMFORT CURVE STRIP VI SCH (12:26)
--- NOTE | 2025-06-04 13:13 | DVHDS2 ---
Discharge Summary Date of Admission Jun 04, 2025 at 00:32 Date of Discharge: Jun 04, 2025 Admitting Diagnosis Dizziness Labs/Diagnostic Data: Laboratory Results Test 06/04/25 09:31 06/03/25 22:57 06/03/25 21:57 06/03/25 21:34 Sodium Level 143 mmol/L (136-145) Potassium Level 4.0 mmol/L (3.5-5.1) Chloride Level 103 mmol/L (98-107) Carbon Dioxide Level 27 mmol/L (20-31) Anion Gap 13 (5-15) Blood Urea Nitrogen 9 mg/dL (9-23) Creatinine 0.71 mg/dL (0.550-1.02) Glomerular Filtration Rate Calc 96 mL/min (>90) BUN/Creatinine Ratio 12.7 (10.0-20.0) Serum Glucose 157 mg/dL (74-106) Calcium Level 9.5 mg/dL (8.7-10.4) Troponin I High Sensitivity 5 ng/L (</=34) Urine Color Colorless (Yellow) Urine Clarity Turbid (Clear) Urine pH 6.5 (5.0-9.0) Urine Specific Reynolds 1.032 (1.001-1.035) Urine Protein Negative (Negative) Urine Ketones Negative (Negative) Urine Blood Negative /uL (Negative) Urine Nitrite Negative (Negative) Urine Bilirubin Negative (Negative) Urine Urobilinogen Normal mg/dL (Negative) Urine Leukocyte Esterase 2+ /uL (Negative) Urine Glucose +4 mg/dL (Normal) White Blood Count 8.5 10^3/uL (4.4-10.8) Red Blood Count 4.41 10^6/uL (4.0-5.20) Hemoglobin 13.8 g/dL (12.2-16.2) Hematocrit 41.4 % (36.0-46.0) Mean Corpuscular Volume 93.9 fL (80.0-100.0) Mean Corpuscular Hemoglobin 31.3 pg (28.0-32.0) Mean Corpuscular Hemoglobin Concent 33.3 g/dL (32.0-36.0) Red Cell Distribution Width 13.9 % (11.8-14.3) Platelet Count 319 10^3/uL (140-450) Mean Platelet Volume 8.3 fL (6.9-10.8) Neutrophils (%) (Auto) 46.2 % (37.0-80.0) Lymphocytes (%) (Auto) 42.6 % (10.0-50.0) Monocytes (%) (Auto) 8.3 % (0.0-12.0) Eosinophils (%) (Auto) 2.1 % (0.0-7.0) Basophils (%) (Auto) 0.8 % (0.0-2.0) Neutrophils # (Auto) 4.0 10 ^3/uL (1.6-8.6) Lymphocytes # (Auto) 3.6 10 ^3/uL (0.4-5.4) Monocytes # (Auto) 0.7 10 ^3/uL (0-1.3) Eosinophils # (Auto) 0.2 10 ^3/uL (0-0.8) Basophils # (Auto) 0.1 10 ^3/uL (0-0.2) Nucleated Red Blood Cells 0.1 % B-Type Natriuretic Peptide 28.27 pg/mL (0-100) Other Laboratory Tests 06/04/25 09:31 06/03/25 21:34 Brief Hx & Hospital Course: History of Present Illness 60 year old female with morbid obesity presents to the ER with 1 episode of dizziness this morning, patient felt like the world is spinning around slowly. After the episode she was not confused. She has a history of low back pain for which she has done an MRI, but presently the patient does not remember findings. Following the episode the patient was not able to use bathroom on her own because of weakness. She does not have any chest pain, shortness of breath, fever or any other complaints today. Course of hospitalization: Patient was given IV hydration. Patient was given potassium replacement. Reassessment of the patient by myself reveals that she is no longer symptomatic. Repeat BMP shows adequate potassium replete. CBC unremarkable. CT scan of the head unremarkable. Chest x-ray unremarkable. Patient will be discharged in his instructed to continue all previous home medications and follow up with her PCP in 1-2 weeks. Physical examination General: Alert and Oriented x3. No acute distress. Well-nourished. Obese Eyes: EOMI. Anicteric. HENT: Moist mucous membranes. Lungs: Clear to auscultation bilaterally. No accessory muscle use. Cardiovascular: Regular rate and rhythm. No murmur. No JVD. Abdomen: Soft, non-tender and non-distended. No palpable masses. Extremities: No edema. Non-tender. Skin: No rashes or lesions. Warm. Neurologic: No focal neurological deficits. CN II-XII grossly intact, but not individually tested. Psychiatric: Cooperative. Appropriate mood and affect. Total time spent with patient discussing and formulating plan of care: 35 minutes. This medical document was created using an electronic medical record system with [employer] dictation system. Although this document has been carefully reviewed, there may still be some phonetic and typographical errors. These areas are purely typographical due to imperfections of the software programs, and do not reflect any compromise in the patient's medical care. Condition at Discharge: Fair Final Diagnosis/Problems List Dizziness secondary to hypovolemia Secondary diagnosis: Diabetes mellitus Obesity Primary hypertension Discharge Disposition: Home Discharge Instruct/Medications Diet: Consistent carbohydrate, Cardiac 2g Na,low cholest Activity: No Restrictions, As Tolerated Follow Up/Referral: Follow up with PCP in 1-2 weeks Medications: Continue all home medications Scheduled Acetaminophen (Acetaminophen), 500 MG PO Q4HPRN Nwoatcwogq-Izmjnbwni-Jibpezccz (Amlodipine/Valsartan/Hctz 5-160-12.5 mg), 5-160 PO DAILY, (Reported) Aspirin (Aspirin Low Dose), 1 TAB PO DAILY, (Reported) Atorvastatin Calcium (Atorvastatin Calcium), 1 TAB PO DAILY, (Reported) Fluconazole (Diflucan), 1 TAB PO ONCE Fluconazole (Diflucan), 1 TAB PO ONCE Hydrocodone-Acetaminophen (Hydrocodone Bitartrate/AC 5-325 mg), 1 TAB PO Q6HR Insulin Glargine (Lantus Solostar), 15 UNIT SC DAILY, (Reported) Levofloxacin Hemihydrate (Levaquin 500 Mg), 500 MG PO DAILY Levofloxacin Hemihydrate (Levaquin 500 Mg), 1 TAB PO DAILY Nitrofurantoin (Nitrofurantoin), 1 CAP PO BID, (Reported) Miscellaneous Medications Empagliflozin (Jardiance), 25 MG PO, (Reported) 36 Discharge Statement: "Patient was advised to return to the ER or call 911 if any headaches, dizziness, shortness of breath, chest pain, abdominal pain, bleeding, fevers, or worsening of medical condition. Patient was counseled about treatment plan, medications, possible side effects, patientverbalized understanding. All questions were answered to the best of my ability. This discharge took greater then 30 minutes in planning, reviewing documentation, counseling the patient, and discussing with other team members." ASSESSMENT ASSESSMENT Assessment Dizziness secondary to hypovolemia Date of Service: Jun 04, 2025 Billing Provider: DEVON MICHAEL NP Common Visit Codes: 15102-BPZ/OBS DISCH DAY >30min DEVON MICHAEL NP Jun 04, 2025 13:13
[2025-06-04 15:34] VITALS: BP 132/60; PULSE 86; RESP 14; TEMP 98.1; O2SAT 93
--- NOTE | 2025-06-06 06:49 | ECG ---
[facility] Test Date: 2025-06-03 Test Time: 18:43:26 Pat Name: NAVA LEMUS Department: ED Room: [address] [place] [address] Gender: F Preservationist: aric : 1965 Requested By: CLEVELAND ZAPATA Order Number: [id number] Reading MD: Kavon Rodriguez Measurements Intervals [place] Rate: 89 P: 57 CO: 142 QRS: 50 QRSD: 100 T: 64 QT: 372 QTc: 453 Interpretive Statements Sinus rhythm Electronically Signed On 06-06-2025 18:16:40 PDT by Kavon Rodriguez Please click the below link to view image of tracing.
== END 2025-06-04 15:35 | disposition home or self-care (01) | DRG 422 ==
LOC: ER 18:40 → OVERFLOW 06-04 00:32
PROVIDERS: ADMIT Internal Medicine; ATTEND Internal Medicine
DX: E86.1 Hypovolemia (principal); E11.9 Type 2 diabetes mellitus without complications; N39.0 Urinary tract infection, site not specified; E87.6 Hypokalemia; E66.01 Morbid (severe) obesity due to excess calories; I10 Essential (primary) hypertension; H81.13 Benign paroxysmal vertigo, bilateral; E78.5 Hyperlipidemia, unspecified; Z79.4 Long term (current) use of insulin; Z79.899 Other long term (current) drug therapy; Z79.82 Long term (current) use of aspirin; Z86.73 Personal history of transient ischemic attack (TIA), and cerebral infarction without residual deficits; Z90.710 Acquired absence of both cervix and uterus
CPT/HCPCS: 36415; 70450; 71045; 80048; 81003; 83880; 84484; 85025; 93005; 96365; 96375; G0378; J1815; J2405; J2470